=== PATIENT | female | born 1965 | race Hispanic/Latino ===

== ENCOUNTER 2017-12-16 17:02 | Inpatient (IN) | payer BC ==
[~2017-12-16 17:02] MED LIST: Calcium Chloride 1000 mg/10 ml Syringe IV ONE; Sodium Bicarbonate 7.5% (0.9 MEQ/ML) 50ML INJ IV ONE
[2017-12-16] MEDS ORDERED: Sodium Chloride 0.9% 50 ML IV ONE (17:32)
[2017-12-16] MEDS ORDERED: Iodixanol 320 MG/ML 100 ML BOTTLE IV ONE ×2 (17:32→21:22)
--- NOTE | 2017-12-16 17:49 | RAD ---
HISTORY: cardiac arrest COMPARISON: No prior. FINDINGS: LUNGS: No active pulmonary disease. PLEURA: No significant pleural effusion identified, no pneumothorax apparent. CARDIOVASCULAR: No radiographic findings to suggest acute or significant cardiovascular disease. OSSEOUS STRUCTURES: No significant abnormalities. VISUALIZED UPPER ABDOMEN: Normal. OTHER FINDINGS: Satisfactorily positioned endotracheal tube. Tube tip is approximately 3 cm above the trina IMPRESSION: No active disease. Satisfactory position of endotracheal tube.
--- NOTE | 2017-12-16 17:55 | CT ---
PROCEDURE: CT HEAD WITHOUT CONTRAST. HISTORY: cardiac arrest COMPARISON: None available. TECHNIQUE: Axial computed tomography images were obtained through the head/brain without intravenous contrast. Radiation dose: Total exam DLP = 1679.32 mGy-cm. This CT exam was performed using one or more of the following dose reduction techniques: Automated exposure control, adjustment of the mA and/or kV according to patient size, and/or use of iterative reconstruction technique. FINDINGS: HEMORRHAGE: No intracranial hemorrhage. BRAIN: While there is good corticomedullary differentiation appreciated throughout the brain, inferior bilateral basal ganglia lucencies may reflect chronic lacunar infarcts or dilated perivascular spaces. The remaining brain parenchyma is normal in density above and below the tentorium otherwise. There is no mass effect or suspicious extra-axial collection appreciated. VENTRICLES: Unremarkable. No hydrocephalus. CALVARIUM: Unremarkable. PARANASAL SINUSES: Unremarkable as visualized. No significant inflammatory changes. MASTOID AIR CELLS: Unremarkable as visualized. No inflammatory changes. OTHER FINDINGS: None. IMPRESSION: No definite acute intracranial findings as discussed above although chronic lacunes or dilated perivascular spaces are identified at the inferior bilateral basal ganglia. Follow-up CT or MRI can be performed as clinically warranted.
[2017-12-16 18:02] LABS: ABG ALLEN TEST YES; ARTERIAL BLOOD GAS HCO3 12.3 mmol/L (21-28); ARTERIAL BLOOD GAS O2 SAT 100.1 % (95-98); ARTERIAL BLOOD GAS PCO2 42 mm/Hg (35-45); ARTERIAL BLOOD GAS PH 7.07 (7.35-7.45); ARTERIAL BLOOD GAS PO2 498 mm/Hg (80-100); ARTERIAL BLOOD GAS TCO2 13.5 mmol/L (22-28)
--- NOTE | 2017-12-16 18:31 | CT ---
PROCEDURE: CT Chest with contrast (Pulmonary Angiogram) HISTORY: cardiac arrest COMPARISON: Chest radiograph 12/16/2017. TECHNIQUE: Axial computed tomography images were obtained of the chest in the pulmonary arterial phase of enhancement. Coronal and sagittal reformatted images were created and reviewed. Intravenous contrast dose: Visipaque 320, 90 cc (same injection utilized for abdomen pelvis CT) Radiation dose: Total exam DLP = 670.78 mGy-cm. This CT exam was performed using one or more of the following dose reduction techniques: Automated exposure control, adjustment of the mA and/or kV according to patient size, and/or use of iterative reconstruction technique. FINDINGS: PULMONARY ARTERIES: Unremarkable. No pulmonary embolism. AORTA: No acute findings. No thoracic aortic aneurysm. LUNGS: Endotracheal intubation is identified terminating at the trachea 1.4 cm above the trina. Central airways are otherwise clear. Trace bilateral basilar dependent atelectasis is appreciated as well as mild bilateral lower lobe infiltrates. Trace right perihilar infiltrate is seen at the right upper lobe spared. Trace involvement seen at the lingula superiorly. PLEURAL SPACES: Unremarkable. No effusion or pneuomothorax. HEART: Unremarkable. No cardiomegaly. Trace inferior pericardial effusion. LYMPH NODES: No lymphadenopathy. BONES, CHEST WALL: Unremarkable. No fracture or destructive lesion OTHER FINDINGS: Intra biliary duct or portal venous gas is noted in the left lobe liver. Please see separate CT exam evaluation 12/16/2017. Bilateral submuscular breast implantation identified IMPRESSION: 1. No CT evidence of pulmonary embolus. 2. Mild bilateral lower lobe infiltrates are appreciate which trace infiltrate identified at the right upper lobe and lingula superiorly. Bibasilar dependent atelectasis also identified. 3. Trace inferior pericardial effusion. 4. Trace portal venous gas or intrahepatic bile duct gas left lobe liver. Please see separate abdomen pelvis CT examination 12/16/2017.
[2017-12-16 18:54] LABS: INR 1.4 (0.9-1.2)
[2017-12-16 18:56] LABS: PARTIAL THROMBOPLASTIN TIME 106.2 Seconds (25.6-37.1)
[2017-12-16 18:58] LABS: ALBUMIN 1.4 g/dL (3.5-5.0); ALT/SGPT 94 U/L (9-52); AST/SGOT 166 U/L (14-36); BLOOD UREA NITROGEN 8 mg/dl (7-17); CALCIUM 6.6 mg/dL (8.4-10.2); GFR AFRICAN-AMERICAN > 60; GFR NON-AFRICAN AMERICAN > 60; LIPASE 264 U/L (23-300)
[2017-12-16] MEDS ORDERED: Sodium Chloride 0.9% 1,000 ML IV STA ×2 (19:05→19:42)
[2017-12-16] MEDS ORDERED: Lactated Ringer's 1,000 ML IV SCH (19:15)
[2017-12-16] MEDS ORDERED: Tranexamic Acid 1,000 MG in Sodium Chloride 0.9% 100 ML IVPB STA (19:16)
[2017-12-16 19:23] LABS: BASO % 1.5 % (0.0-2.0); EOS % 2.6 % (0.0-4.0); LYMPH # 0.4 K/uL (1.0-4.3); LYMPH % 56.8 % (20.0-40.0); MEAN CELL VOLUME 101.4 fl (81.0-99.0); MEAN CORPUSCULAR HEMOGLOBIN 32.7 pg (27.0-31.0); MEAN CORPUSCULAR HGB CONC 32.2 g/dL (33.0-37.0); MEAN PLATELET VOLUME 8.6 fl (7.2-11.7); MONO # 0.1 K/uL (0.0-0.8); MONO % 7.7 % (0.0-10.0); NEUT # 0.2 K/uL (1.8-7.0); NEUT % 31.4 % (50.0-75.0); NRBC % 2.6 % (0.0-0.0); RBC 1.2 Mil/uL (3.80-5.20); RED CELL DISTRIBUTION WIDTH 14.3 % (11.5-14.5)
--- NOTE | 2017-12-16 19:34 | CT ---
PROCEDURE: CT Abdomen and Pelvis with contrast HISTORY: abd pain COMPARISON: None. TECHNIQUE: Contrast dose: Visipaque 320, 90 cc Radiation dose: Total exam DLP = 670.78 mGy-cm. This CT exam was performed using one or more of the following dose reduction techniques: Automated exposure control, adjustment of the mA and/or kV according to patient size, and/or use of iterative reconstruction technique. FINDINGS: LOWER THORAX: See chest CT 12/16/2017 immediately preceding the current abdomen and pelvis CT. LIVER: Gas seen in the nondependent left lobe liver within what appear to be portal veins with differs diagnosis being intrahepatic bile ducts. The liver is poorly enhanced as well as the majority of the solid abdominal viscera sparing the bilateral kidneys. GALLBLADDER AND BILE DUCTS: Obscured by ascites/hemoperitoneum. PANCREAS: Unremarkable. No gross lesion or ductal dilatation. SPLEEN: Unremarkable. ADRENALS: Unremarkable. No mass. KIDNEYS AND URETERS: Unremarkable. No hydronephrosis. No solid mass. VASCULATURE: Please see perineum section below. BOWEL: The stomach is distended with gas. The bowel does not appear obstructed although there is moderate dilatation of small bowel with gas. Residual oral contrast is identified mildly at the ascending colon. No definite pneumatosis coli is appreciated throughout the majority of large bowel and none is clearly evident in the small-bowel. APPENDIX: Appendix is partially obscured by ascites but is likely intact without acute appendicitis. PERITONEUM: Variable density ascites is identified ranging from 5 Hounsfield units up to 49 Hounsfield units suspicious for hemoperitoneum intermixed with ascites. There is no definite free intraperitoneal gas identified however, mesenteric reaction is appreciated at the right oj abdomen and due to hemoperitoneum and lack of oral contrast, small large bowel are poorly although the duodenum is recently identifiable. There is what appears to be extravasation of iodinated contrast material into the right flank/right lower quadrant that is the same density as contrast in the abdominal aorta. The finding likely reflects active extravasation from a branch off the hepatic artery, possibly the distal right gastric artery or superior pancreaticoduodenal artery.. The etiology is unclear but this could be due to infectious or inflammatory causes resulting in bowel although no pneumatosis is seen in this specific right flank location. Fecal material is favored over pneumatosis at the rectum. No definite free intraperitoneal gas is identified. The abdominal aorta appears small which may be a function of diminished systolic pressure but patent and without aneurysm or extravasation directly. Hemorrhagic byproducts are felt to present in the dependent lower pelvis. LYMPH NODES: Unremarkable. No enlarged lymph nodes. BLADDER: Unremarkable. REPRODUCTIVE: Unremarkable. BONES: No acute fracture. OTHER FINDINGS: None. IMPRESSION: Moderate hemoperitoneum is identified with questioned active extravasation at the right flank, possibly from the right gastric artery or possible superior pancreatic though duodenal artery. No definite abscess is appreciated however there appears to be 9 mm aneurysm somewhat proximal to the level of the active extravasation and this could be a septic aneurysm. Trace portal venous gas at the left lobe liver is suspicious for ischemic bowel though no definitive pneumatosis is appreciable including at the right hemiabdomen. No free intraperitoneal gas is appreciated. Other lesser findings as discussed above. Findings discussed preliminarily with Dr. August with written down and read back verification 12/16/2017 6:50 p.m.. Follow-up discussion at 7:29 p.m..
[2017-12-16 19:38] LABS: HEMOGLOBIN 3.9 g/dL (12.0-16.0); WHITE BLOOD COUNT 0.7 K/uL (4.8-10.8)
[2017-12-16] MEDS ORDERED: Albumin Human 5% (12.5 gm/250 ml) IV ONE (19:41)
[2017-12-16] MEDS ORDERED: Vasopressin 20 Units/ml Inj ONE (20:14)
--- NOTE | 2017-12-16 20:49 | ED PDOC ---
HPI: Cardiac Arrest Time Seen by Provider: 12/16/17 17:27 Chief Complaint (Nursing): Cardiac Arrest Chief Complaint (Provider): cardiac arrest History Per: Other (friend) Reason For Code Blue: Full Arrest Circumstances: Other (arrived via hired vehicle) CPR Initiated Prior To MD Arrival?: No Down-Time Before ACLS: Mins (approx 15 per friend) Medications Given Prior To MD Arrival: Other (none) Additional Complaint(s): 52yo F arrived at front door of ED via car from airport where she just landed from [place] with a friend for visit to [facility]. Per friend had uneventful flight , transferred to car to [facility], while in traffic began to c/o abdominal pain, had some trouble breathing, then became suddenly unresponsive in traffic near [facility]. Dropped off at curb at ER entrance per friend about 15min from initial collapse, I met patient at curb and we initiated CPR immediately placed on stretcher. Brought to resusc room with active CPR, code blue initiated, Dr Daly intubated with 7.0 ETT w glidescope and ACLS protocol continued. Asystole on arrival, peripheral access obtained, IVF and epinephrine given. Dr Daly attended to patient for resuscitation while I obtained information from friend Lisseth in bereavement room- stated she was seen at [facility] in [place] 2 nights ago for abdominal pain and discharged home with tramadol and zofran after CT abd pelvis abd bloodwork were unremarkable. While resuscitation underway Dr Daly continued at bedside and I contacted [facility] , spoke with meteorologist in charge Koffi, told attending physician was unavailable. He reported under stat need for potentially life saving communication a normal CT, normal Hgb and unremarkable chemistry was discharged w tramadol and zofran. Was seen by 2 physicians there over a shift change per RN but no GI or surgery reported. per friend Christiano- on hormone replacement patch, w children, no history chronic alcoholism or known drug use, does take xanax occasionally, had recent cyst removed from shoulder, having familial stresses. - Initial Findings Mentation: Unresponsive Respirations: None (Assisted) Pulse: None Rhythm: Asystole Past Medical History Reviewed: Historical Data, Nursing Documentation, Vital Signs, Unable To Obtain - Medical History Other PMH: per friend- recent abd pain, on hormone replacement therapy - Surgical History Other surgeries: unknown on arrival - Family History Family History: States: Unknown Family Hx - Living Arrangements Living Arrangements: With Family (erie) - Social History Current smoker - smoking cessation education provided: No (per friend ) - Allergies Allergies/Adverse Reactions: Allergies Allergy/AdvReac Type Severity Reaction Status Date / Time Unobtainable Allergy Verified 12/16/17 17:13 Review of Systems Review Of Systems: ROS cannot be obtained secondary to pt's inabilty to answer questions. Physical Exam - Reviewed Nursing Documentation Reviewed: Yes Vital Signs Reviewed: Yes - Physical Exam Appears: Negative for: Well (unresponsive) Head Exam: Positive for: ATRAUMATIC, NORMAL INSPECTION Skin: Positive for: Mottled, Cyanosis Eye Exam: Positive for: Other (pupils 4mm fixed no aniscoria). Negative for: EOMI, PERRL, Periorbital swelling ENT: Positive for: Other (mucous membranes moist) Neck: Positive for: Trachea Midline Cardiovascular/Chest: Positive for: Other (no subcutaneous emphysema, chest symmetric rise w bag, no pulse on arrival) Respiratory: Positive for: Other (clear lungs w ambu bag) Pulses-Femoral (L): 0 Pulses-Femoral (R): 0 Pulses-Radial (L): 0 Pulses-Radial (R): 0 Gastrointestinal/Abdominal: Positive for: Other (soft on arrival no ecchymosis) . Negative for: Asicites Back: Positive for: Other (neg ecchymosis on arrival to flanks) Extremity: Positive for: Other (neg edema, cool). Negative for: Deformity, Swelling Neurologic/Psych: Positive for: Other (unresponsive, no gag) - Laboratory Results Result Diagrams: 12/16/17 18:24 12/16/17 18:25 - ECG ECG: Positive for: Interpreted By Me ECG Rhythm: Positive for: ST/T Changes Interpretation Of Abn EKG: rapid Afbib post arrest and ROSC - Radiology X-Ray: Interpreted by Me X-Ray Interpretation: No Acute Disease - Critical Care Total Time (In Min): 120 Comments: patient required immediate and sustained bedside attention Medical Decision Making Medical Decision Makinyo F in cardiac arrest off transcontinental flight on hormone replacement therapy in setting of recent intermittent abdominal pain with Concern for PE, ICH, FL, arrhythmia, abdominal catastrophe vs other. Abdomen nondistended and soft on arrival. Able to regain ROSC after epinephrine and stat CT head/chest r/o PE and abdomen/ pelv performed but not making purposeful movements. BP adequate off pressors and further diagnostics to be obtained. Initial concern for PE as cause of arrest given long plane ride, on hormone therapy and sudden collapse without evidence of vomiting or severe abd pain with negative abdominal workup in [place] <48hrs. EKG thereafter Afib w RVR, does not appear as STEMI. Post arrest ABG ++lactate, hyperoxia, vent settings adjusted. CT brain report reviewed- no ICH. Discussed w radiologist Dr Murphy- no PE on CTA chest. CT abd pelv w massive hemoperiteoneum concern for pancreatic aneurysmal rupture. Central access difficult to obtain, IO access to L humeral head and TLC cath to L groin placed under emergent conditions. Stat PRBC ONeg, tranexamic acid, albumin and further IVF ordered. Therapeutic hypothermia considered and will be initiated after diagnostic imaging if other interventional pathology not discovered. Platelets ordered, not available in-house need to be ordered. FFP ordered. Note timing of some orders is not consistent with actual interventions given persistent time needed at bedside and later computer orders entered. Accession No. : [id number] Patient Name / ID : LIZ Lyons / [id number] Exam Date : 12/16/2017 17:47:35 ( Approved ) Study Comment : Sex / Age : F / 52Y Creator : Lyle Baptiste MD Dictator : Lyle Baptiste MD Computer Networking Instructor : Pit Shovel Operator : Lyle Baptiste MD Approver2 : Report Date : 12/16/2017 19:32:51 My Comment : PROCEDURE: CT Abdomen and Pelvis with contrast HISTORY: abd pain COMPARISON: None. TECHNIQUE: Contrast dose: Visipaque 320, 90 cc Radiation dose: Total exam DLP = 670.78 mGy-cm. This CT exam was performed using one or more of the following dose reduction techniques: Automated exposure control, adjustment of the mA and/or kV according to patient size, and/or use of iterative reconstruction technique. FINDINGS: LOWER THORAX: See chest CT 12/16/2017 immediately preceding the current abdomen and pelvis CT. LIVER: Gas seen in the nondependent left lobe liver within what appear to be portal veins with differs diagnosis being intrahepatic bile ducts. The liver is poorly enhanced as well as the majority of the solid abdominal viscera sparing the bilateral kidneys. GALLBLADDER AND BILE DUCTS: Obscured by ascites/hemoperitoneum. PANCREAS: Unremarkable. No gross lesion or ductal dilatation. SPLEEN: Unremarkable. ADRENALS: Unremarkable. No mass. KIDNEYS AND URETERS: Unremarkable. No hydronephrosis. No solid mass. VASCULATURE: Please see perineum section below. BOWEL: The stomach is distended with gas. The bowel does not appear obstructed although there is moderate dilatation of small bowel with gas. Residual oral contrast is identified mildly at the ascending colon. No definite pneumatosis coli is appreciated throughout the majority of large bowel and none is clearly evident in the small-bowel. APPENDIX: Appendix is partially obscured by ascites but is likely intact without acute appendicitis. PERITONEUM: Variable density ascites is identified ranging from 5 Hounsfield units up to 49 Hounsfield units suspicious for hemoperitoneum intermixed with ascites. There is no definite free intraperitoneal gas identified however, mesenteric reaction is appreciated at the right oj abdomen and due to hemoperitoneum and lack of oral contrast, small large bowel are poorly although the duodenum is recently identifiable. There is what appears to be extravasation of iodinated contrast material into the right flank/right lower quadrant that is the same density as contrast in the abdominal aorta. The finding likely reflects active extravasation from a branch off the hepatic artery, possibly the distal right gastric artery or superior pancreaticoduodenal artery.. The etiology is unclear but this could be due to infectious or inflammatory causes resulting in bowel although no pneumatosis is seen in this specific right flank location. Fecal material is favored over pneumatosis at the rectum. No definite free intraperitoneal gas is identified. The abdominal aorta appears small which may be a function of diminished systolic pressure but patent and without aneurysm or extravasation directly. Hemorrhagic byproducts are felt to present in the dependent lower pelvis. LYMPH NODES: Unremarkable. No enlarged lymph nodes. BLADDER: Unremarkable. REPRODUCTIVE: Unremarkable. BONES: No acute fracture. OTHER FINDINGS: None. IMPRESSION: Moderate hemoperitoneum is identified with questioned active extravasation at the right flank, possibly from the right gastric artery or possible superior pancreatic though duodenal artery. No definite abscess is appreciated however there appears to be 9 mm aneurysm somewhat proximal to the level of the active extravasation and this could be a septic aneurysm. Trace portal venous gas at the left lobe liver is suspicious for ischemic bowel though no definitive pneumatosis is appreciable including at the right hemiabdomen. No free intraperitoneal gas is appreciated. Other lesser findings as discussed above. Findings discussed preliminarily with Dr. August with written down and read back verification 12/16/2017 6:50 p.m.. Follow-up discussion at 7:29 p.m.. Accession No. : [id number] Patient Name / ID : LIZ Lyons / [id number] Exam Date : 12/16/2017 17:47:35 ( Approved ) Study Comment : Sex / Age : F / 52Y Creator : Lyle Baptiste MD Dictator : Lyle Baptiste MD Computer Networking Instructor : Pit Shovel Operator : Lyle Baptiste MD Approver2 : Report Date : 12/16/2017 18:27:40 My Comment : PROCEDURE: CT Chest with contrast (Pulmonary Angiogram) HISTORY: cardiac arrest COMPARISON: Chest radiograph 12/16/2017. TECHNIQUE: Axial computed tomography images were obtained of the chest in the pulmonary arterial phase of enhancement. Coronal and sagittal reformatted images were created and reviewed. Intravenous contrast dose: Visipaque 320, 90 cc (same injection utilized for abdomen pelvis CT) Radiation dose: Total exam DLP = 670.78 mGy-cm. This CT exam was performed using one or more of the following dose reduction techniques: Automated exposure control, adjustment of the mA and/or kV according to patient size, and/or use of iterative reconstruction technique. FINDINGS: PULMONARY ARTERIES: Unremarkable. No pulmonary embolism. AORTA: No acute findings. No thoracic aortic aneurysm. LUNGS: Endotracheal intubation is identified terminating at the trachea 1.4 cm above the trina. Central airways are otherwise clear. Trace bilateral basilar dependent atelectasis is appreciated as well as mild bilateral lower lobe infiltrates. Trace right perihilar infiltrate is seen at the right upper lobe spared. Trace involvement seen at the lingula superiorly. PLEURAL SPACES: Unremarkable. No effusion or pneuomothorax. HEART: Unremarkable. No cardiomegaly. Trace inferior pericardial effusion. LYMPH NODES: No lymphadenopathy. BONES, CHEST WALL: Unremarkable. No fracture or destructive lesion OTHER FINDINGS: Intra biliary duct or portal venous gas is noted in the left lobe liver. Please see separate CT exam evaluation 12/16/2017. Bilateral submuscular breast implantation identified IMPRESSION: 1. No CT evidence of pulmonary embolus. 2. Mild bilateral lower lobe infiltrates are appreciate which trace infiltrate identified at the right upper lobe and lingula superiorly. Bibasilar dependent atelectasis also identified. 3. Trace inferior pericardial effusion. 4. Trace portal venous gas or intrahepatic bile duct gas left lobe liver. Please see separate abdomen pelvis CT examination 12/16/2017. Initial labs revealed profound pancytopenia Trendelenburg position maintained to optimize cerebral perfusion. Patient lost pulses additional time, responded to CPR and epi and further IVF. Stat page to interventional radiology and surgery. Dr Hopson neurological surgeon surgeon in ED, recommend attempt for salvage IR if unable, possible salvage OR for clamping but will need higher level of care. hence recommends transfer tertiary center if survives, initial call made to [facility] acute surgical service awaiting call back. D/w Dr Andre who reviewed CT and will attempt salvage intervention. RN tank builder supervisor and SANDER PORTABLE MACHINE nursing at bedside to help facilitate IR and OR teams stat. Calcium to be given in IR suite after further transfusion. I updated friend Hattie who called Galen and I updated Galen x2 over course of ED resuscitation. Explained life saving procedures performed and very critical status, he consented to whatever needed to be performed to save Pamela 's life and to inform Hattie of any issues also. He is traveling from [facility]. I explained concern for poor prognosis, and if survives, may have profound anoxic injury, although initial CT does not demonstrate edema, was performed very rapidly after initial arrest. Friend Christiano- [phone] Disposition - Clinical Impression Clinical Impression: Cardiac arrest, Hemoperitoneum - Patient ED Disposition Is Patient to be Admitted: Yes - Disposition Disposition Time: 19:00 (approximate time, active dynamic case involving mutliple clinicians and active resuscitation) Condition: CRITICAL Forms: [employer] (Macedonian)
[2017-12-16] MEDS ORDERED: Lidocaine 1% Inj (20ml) ONE (20:56)
[2017-12-16] MEDS ORDERED: metroNIDAZOLE 500mg/100ml NS 100 ML IVPB ONE (21:04)
[2017-12-16] MEDS ORDERED: Rocuronium 10 mg/ml (5 ml) ONE (21:16)
[2017-12-16] MEDS ORDERED: EPINEPHrine 1 mg/ml (1:1000) Inj ONE (21:44)
[2017-12-16] MEDS ORDERED: Iodixanol 320 mg/ml 50 ml Sol IV ONE (22:02)
[2017-12-16] MEDS ORDERED: Cellulose Hemostat 2X3 Sheet ONE (22:09)
--- NOTE | 2017-12-16 22:37 | PCM.IRPREO ---
Pre Procedure Note - History Proposed Procedure: Mesenteric angiogram, embolization of GDA Pre-Op Diagnosis: Cardiac arrest, Acute blood loss, intraperitoneal hemorrhage - Previous Medical/Surgical History Cardiac: Other (Pt intubated at time of presentation to IR. ) - Pre Procedure Were any radiologic studies performed in the last 12 months: Yes (CT abdomen showed active bleed or aneurysm? in mid abdomen. Bleed appears to be a branch of the GDA.) List of radiologic studies performed: CTA chest, CT abdomen/pelvis with IV contrast. Was medical management performed in the past 24 months: Yes List of medical management performed: CPR, blood transfusions. Clinical indication for the procedure: Acute blood loss, cardiac arrest Have risks and benefits been explained to the patient: No (Pt intubated and procedure is performed in an emergent, life saving manner. ER attending spoke w who asked everything be done.) Have alternatives to surgery explained to the patient as applicable: No ( Surgical options discussed wth Pt's friend. Pt is not responsive and family en route from [place].) - Allergies Allergies: Allergies Unobtainable Allergy (Verified 12/16/17 17:13) - Physical Exam Mental Status: Comatose - Impression Impression: Pt with acute blood loss secondary to either an ulcer or ruptured aneurysm. Active bleed seen on CT abdomen. Plan mesenteric angiogram and embolization of GDA which appears to supply the bleeding area/vessel. Pt. Evaluated Today:Candidate for Anesthesia & Procedure: ASA V malampati 3 - Date & Time Date: 12/16/17 Time: 09:30
[2017-12-16] MEDS ORDERED: Sodium Bicarbonate 7.5% (0.9 MEQ/ML) 50ML INJ IV ONE (22:44)
--- NOTE | 2017-12-16 22:45 | PCM.SURG1 ---
Surgeon's Initial Post Op Note - Surgeon's Notes Surgeon: Rafat Cox MD [employer] Mechanic: NONE Type of Anesthesia: Local, None Pre-Operative Diagnosis: Acute blood loss, cardiac arrest Operative Findings: Mesenteric angiogram showed active extravasation from a branch coming of the GDA. Vasospams. Post-Operative Diagnosis: Acute blood loss, cardiac arrest Operation Performed: Embolization of the GDA with interlock microcoils, 3 m-4 mm until stasis of blood flow in GDA was achieved. Specimen/Specimens Removed: NONE Estimated Blood Loss: EBL {In ML}: 15 Blood Products Given: N/A Drains Used: No Drains Post-Op Condition: Critical Date of Surgery/Procedure: 12/16/17 Time of Surgery/Procedure: 10:30
[2017-12-16] MEDS ORDERED: Sodium Bicarbonate 8.4% 100 MEQ in Dextrose 5%/0.45% NS 1,000 ML IV SCH (23:00)
[2017-12-16] MEDS ORDERED: Rocuronium 10 mg/ml (5 ml) IV ONE (23:04)
--- NOTE | 2017-12-16 23:21 | CP.PCM.HP ---
History of Present Illness - History of Present Illness History of Present Illness: PMD: Unknown Chief Complaint: Abdominal Pain/Cardiac Arrest The Patient was seen and examined in the ED/ In the IR Suit/ In the ICU HPI: All information obtained from patients friend, ER nurses and review of available EMR chart: 52 F arrived to ER via [employer] with friend, after departing from a flight from [place], had been conversing with friend in the [employer], then had c/o trouble breathing and abdominal pain, subsequently unresponsive, down time estd 5 mins , friend started prelim CPR in the [employer] which continued on the sidewalk after arrival to hospital. Code chelo called for asystole, successful resuscitation to ROSC and sinus rhythm with SBP 120s. Initial observed rhythms as per ER MD, described as brief rapid A Fib and bigeminy. Presently intubated on MV, minimal spontaneous hand withdrawal observed as per ER MD, underwent CT Head, CTAP and CT chest angio, all studies with prelim negative pathology. Friend states patient had been in an ER in [place] 2 days ago for abd pain with negative w/u and discharged home on Zofran and Tramadol. Friend states patient did take a Xanax and Tramadol during the flight. Patient taken to the IR lab where Mesenteric Angiogram and Embolization of GastroDuodenal Artery was done by Dr Andre. Other vitals and I/O's reviewed. ROS: no other pertinent negs or positives on 10+ system review obtainable from unresponsive and intubated patient PMSFH: All other Nursing and physician documentation reviewed to date; no new pertinent info noted relevant to current medical problems. Allergies: NKDA Home Meds: Unknown EXAM- HEENT: no icterus, no gaze preference, pupils equal and reactive NECK: No JVD, supple, carotids equal upstroke bilat/no bruits CHEST: clear with diminished BS bilat, no wheezes audible. HEART: regular, distant, S1S2, no rubs or murmurs ABD: soft, obese and rotund; no distention, no tympany, no palp tenderness, BS hypoactive EXT: no pedal edema. No peripheral/ digital cyanosis, no calf tenderness or palpable cords, distal pulses intact and symmetrical NEURO: flaccid x 4 extremities SKIN: no rashes, warm and dry. LABS: WBC= 0.7 HGB= 3.9 PLTs= 50 Xv=249 K= 3.3 CL= 98 HCO3=16 BUN/Cr= 8/0.8 BS= 402 CXR: (my interp) essentially clear bilaterally/ET tube above trina Head CT: No intracraneal bleed CT Chest: No PE Bibasal Atelectasis Trace inferior Pericardial effusion mild bilateral lower lobe infiltrate with trace infiltrate art right upper lobe CT Abdomen/Pevis: Moderate hemoperitoneum with questionable extravasation at right flank, Right gastric artery or possible superior pancrease through duodenal artery. 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 Cardiac Arrest 2. Acute Blood Loss 3. Intraperitoneal bleed 4. Pancytopenia 5. Hypocalcemia 6. Hypoalbuminemia PLAN: 1. Cardiac arrest with Respiratory Arrest with severe Metabolic Acidosis with pH 6.80 - Mechanical ventilation AC20; TV450; FiO2 100% - The Patient is paralized as per IR request - Sodium Bicarbonate . Total of 300mEq given - Sodium Bicarbonate Drip 2. Intraperitoneal Bleed with Acute blood loss Hb 3.9g/dl ;s/p Mesenteric Angiogram and Embolization of Gastro Duodenal Artery( Dr Rafat Andre) - Surgery on Consult : Dr Hopson - IR consult : Dr Rafat Andre - Patient received total of 8 units of PRBC; 3 Platelets and FFP - Will need further PRBC to be transfused - Tranexamic acid given Bolus and Drip - Consult Hematology: Dr Matthews - Plan by surgery to transfer patient to a trauma center 3. Hypovolemic shock - Monitor BP from A-Line - IV Fluids - Levophed/NeoSynephrine/Epinephrine/Vasopressin 4. Hypocalcemia secondary to the hypoalbumenemia - Patient received 5. Pancytopenia - Consult Dr Roxane Matthews - PRBC and Platelets transfused 6. Elevated Troponin - Consult Dr Eloy Matthews #. DVT prophylaxis with SCD #. Code Status: Unknown full code Present on Admission - Present on Admission Any Indicators Present on Admission: No History of DVT/PE: No History of Uncontrolled Diabetes: No Urinary Catheter: No Decubitus Ulcer Present: No Past Patient History - Past Social History Smoking Status: Never Smoked - PSYCHIATRIC Hx Substance Use: No Meds Allergies/Adverse Reactions: Allergies Allergy/AdvReac Type Severity Reaction Status Date / Time Unobtainable Allergy Verified 12/16/17 17:13 Results - Labs Result Diagrams: 12/16/17 23:35 12/16/17 23:35 Labs: Laboratory Results - last 24 hr 12/16/17 12/16/17 12/16/17 17:26 18:24 18:25 WBC 0.7 L* RBC 1.20 L Hgb 3.9 L* Hct 12.2 L MCV 101.4 H MCH 32.7 H MCHC 32.2 L RDW 14.3 Plt Count 50 L MPV 8.6 Neut % (Auto) 31.4 L Lymph % (Auto) 56.8 H Eagle % (Auto) 7.7 Eos % (Auto) 2.6 Baso % (Auto) 1.5 Neut # (Auto) 0.2 L Lymph # (Auto) 0.4 L Eagle # (Auto) 0.1 Eos # (Auto) 0.0 Baso # (Auto) 0.0 PT INR APTT pCO2 42 pO2 498 H HCO3 12.3 L ABG pH 7.07 L* ABG Total CO2 13.5 L ABG O2 Saturation 100.1 H ABG Base Excess -16.3 L Cristhian Test Yes ABG Potassium 3.1 L A-a O2 Difference 163.0 Sodium 135.0 131 L Chloride 104.0 98 Glucose 662 H* Lactate 13.2 H* Vent Mode Prvc/ac Mechanical Rate 14 FiO2 100.0 Tidal Volume 400 PEEP 4 Crit Value Called To Dr zeynep womack Crit Value Called By Rt Crit Value Read Back Y Blood Gas Notified Time 1726 Potassium 3.3 L Carbon Dioxide 16 L Anion Gap 20 BUN 8 Creatinine 0.8 Est GFR ( Amer) > 60 Est GFR (Non-Af Amer) > 60 Random Glucose 402 H* Calcium 6.6 L Phosphorus 7.9 H Magnesium 2.2 Total Bilirubin 0.3 AST 166 H ALT 94 H Alkaline Phosphatase 42 Troponin I 2.6700 H* Total Protein 2.8 L Albumin 1.4 L Globulin 1.4 L Albumin/Globulin Ratio 1.0 Lipase 264 Arterial Blood Potassium 3.1 L Blood Type Antibody Screen Crossmatch BBK History Checked 12/16/17 12/16/17 18:25 19:05 WBC RBC Hgb Hct MCV MCH MCHC RDW Plt Count MPV Neut % (Auto) Lymph % (Auto) Eagle % (Auto) Eos % (Auto) Baso % (Auto) Neut # (Auto) Lymph # (Auto) Eagle # (Auto) Eos # (Auto) Baso # (Auto) PT 16.0 H INR 1.4 H APTT 106.2 H* pCO2 pO2 HCO3 ABG pH ABG Total CO2 ABG O2 Saturation ABG Base Excess Cristhian Test ABG Potassium A-a O2 Difference Sodium Chloride Glucose Lactate Vent Mode Mechanical Rate FiO2 Tidal Volume PEEP Crit Value Called To Crit Value Called By Crit Value Read Back Blood Gas Notified Time Potassium Carbon Dioxide Anion Gap BUN Creatinine Est GFR ( Amer) Est GFR (Non-Af Amer) Random Glucose Calcium Phosphorus Magnesium Total Bilirubin AST ALT Alkaline Phosphatase Troponin I Total Protein Albumin Globulin Albumin/Globulin Ratio Lipase Arterial Blood Potassium Blood Type B NEGATIVE Antibody Screen Negative Crossmatch See Detail BBK History Checked No verified bt Assessment & Plan - Date & Time Date: 12/16/17 Time: 23:21
[2017-12-16] MEDS ORDERED: Norepinephrine 8 MG in Dextrose 5% In Water 500 ML IV SCH (23:30)
[2017-12-16 23:40] LABS: BASO % 0.7 % (0.0-2.0); EOS % 2.4 % (0.0-4.0); LYMPH # 0.4 K/uL (1.0-4.3); LYMPH % 25.2 % (20.0-40.0); MEAN CELL VOLUME 102.4 fl (81.0-99.0); MEAN CORPUSCULAR HEMOGLOBIN 31.2 pg (27.0-31.0); MEAN CORPUSCULAR HGB CONC 30.5 g/dL (33.0-37.0); MEAN PLATELET VOLUME 8.1 fl (7.2-11.7); MONO % 3.3 % (0.0-10.0); NEUT % 68.4 % (50.0-75.0); NRBC % 1.3 % (0.0-0.0); RBC 1.77 Mil/uL (3.80-5.20); RED CELL DISTRIBUTION WIDTH 16.2 % (11.5-14.5)
[2017-12-16 23:43] LABS: HEMOGLOBIN 5.5 g/dL (12.0-16.0); WHITE BLOOD COUNT 1.4 K/uL (4.8-10.8)
[2017-12-17 00:07] LABS: ALB/GLOB RATIO 1.1 (1.0-2.1); ALBUMIN 1.5 g/dL (3.5-5.0); ALT/SGPT 490 U/L (9-52); AST/SGOT 732 U/L (14-36); BLOOD UREA NITROGEN 7 mg/dl (7-17); CALCIUM 9.9 mg/dL (8.4-10.2); GFR AFRICAN-AMERICAN > 60; GFR NON-AFRICAN AMERICAN 58
[2017-12-17] MEDS: Phenylephrine 30 MG in Sodium Chloride 0.9% 250 ML IV SCH ×5 (00:11→13:17)
[2017-12-17 00:15] LABS: ABG ALLEN TEST YES; ARTERIAL BLOOD GAS HEMOGLOBIN 6.8 g/dL (11.7-17.4); ARTERIAL BLOOD GAS O2 CAPACITY 9.4 mL/dL (16-24); ARTERIAL BLOOD GAS O2 CONTENT 7.2 ML/dL (15-23); ARTERIAL BLOOD GAS O2 SAT 76.7 % (95-98); ARTERIAL BLOOD GAS PCO2 61 mm/Hg (35-45); ARTERIAL BLOOD GAS PH < 6.80 (7.35-7.45); ARTERIAL BLOOD GAS PO2 45 mm/Hg (80-100)
[2017-12-17 00:17] LABS: ABG ALLEN TEST YES; ARTERIAL BLOOD GAS HEMOGLOBIN 4.4 g/dL (11.7-17.4); ARTERIAL BLOOD GAS O2 CAPACITY 6.1 mL/dL (16-24); ARTERIAL BLOOD GAS O2 SAT 82.4 % (95-98); ARTERIAL BLOOD GAS PCO2 43 mm/Hg (35-45); ARTERIAL BLOOD GAS PH < 6.80 (7.35-7.45); ARTERIAL BLOOD GAS PO2 44 mm/Hg (80-100)
[2017-12-17] MEDS ORDERED: Sodium Bicarbonate 7.5% (0.9 MEQ/ML) 50ML INJ IV ONE ×3 (00:17→04:52)
[2017-12-17] MEDS: metroNIDAZOLE 500mg/100ml NS 100 ML IVPB SCH ×3 (01:41→16:33)
[2017-12-17 01:47] VITALS: RESP 20
[2017-12-17] MEDS: Sodium Bicarbonate 8.4% 100 MEQ in Dextrose 5%/0.45% NS 1,000 ML IV SCH ×2 (03:02→11:52)
[2017-12-17] MEDS: Piperacillin/Tazobact 3.375 GM in Sodium Chloride 0.9% 100 ML IVPB SCH ×3 (03:03→16:32)
[2017-12-17] MEDS ORDERED: Calcium Chloride 1000 mg/10 ml Syringe IV ONE (03:06)
--- NOTE | 2017-12-17 03:27 | CP.PCM.CON ---
<Albaro Higginbotham - Last Filed: 12/17/17 10:12> History of Present Illness - History of Present Illness History of Present Illness: General Surgery Consult Note: Dr. Hopson Reason for consult: hemoperitoneum 52F with unknown past medical history presented to [facility] in cardiac arrest. As per patient's friend, Christiano, 2 days prior patient had visited a [facility] with complaints of abdominal pain. There she was discharged home with tramadol and zofran after CT abd pelvis along with lab work prove to be unremarkable. Today, they were taking an uber ride to [facility] and while in traffic patient began complaining of abdominal pain. Patient's friend described patient had some difficulty breathing and suddenly became unresponsive. Patient was dropped off at the curb of [facility] ED, Christiano states she had initiated CPR in the uber. Total time elapsed from uber ride to ED was approximately 15 minutes. CPR was resumed in ED, cheri whitney was called, patient was intubated, and ACLS was carried out. Shonaemelia states patient is on hormone replacement patch. There is no known history of alcoholism or drug abuse. General Surgery was consulted after CT Abd/Pel w/ IV contrast demonstrated hemoperitoneum. At time of examination, patient was intubated and on 15 mcg of levophed. GCS 3T. Vitals at time of examination were BP~85/40, HR ~110, O2 Sat ~ 85 on PRVC at 60% PEEP 5. Hgb 3.9, Hct 12.2, ABG lactate 13.2, pH 7.07 . At this time OR staff was mobilized for possible acute surgical intervention. Interventional Radiology water purification chemist, Dr. Andre, also consulted. At which time the decision was made to transfer patient to IR suite for embolization of gastroduodenal artery. Upon transfer to IR suite, patient underwent CPR after developing PEA. S/p ROSC, patient underwent embolization of gastroduodenal artery with interlock microcoils, 3mm-4 mm until stasis of blood flow in GDA was achieved. Attempts were made to contact tertiary facilities for possible transfer, which were unsuccessful. Patient was then transferred to ICU where she remained on mechanical ventilation and continued pressor support. Review of Systems - Review of Systems Systems not reviewed;Unavailable: Intubated Past Patient History - Past Medical History & Family History Past Medical History?: Yes - Past Social History Smoking Status: Never Smoked - CARDIAC Hx Cardiac Disorders: No (unknown) - PULMONARY Hx Respiratory Disorders: No (unknown) - NEUROLOGICAL Hx Neurological Disorder: No (unknown) - HEENT Hx HEENT Problems: No (unknown) - RENAL Hx Chronic Kidney Disease: No (unknown) - ENDOCRINE/METABOLIC Hx Endocrine Disorders: No (unknown) - HEMATOLOGICAL/ONCOLOGICAL Hx Blood Disorders: No (unknown) - INTEGUMENTARY Hx Dermatological Problems: No (unknown) - MUSCULOSKELETAL/RHEUMATOLOGICAL Hx Musculoskeletal Disorders: No (unknown) Hx Falls: No (unknown) - GASTROINTESTINAL Hx Gastrointestinal Disorders: No (unknown) Other/Comment: abdominal pain - GENITOURINARY/GYNECOLOGICAL Hx Genitourinary Disorders: No (unknown) - PSYCHIATRIC Hx Substance Use: No - SURGICAL HISTORY Hx Surgeries: No (unknown) - ANESTHESIA Hx Anesthesia: No (unknown) Meds Allergies/Adverse Reactions: Allergies Allergy/AdvReac Type Severity Reaction Status Date / Time Unobtainable Allergy Verified 12/16/17 17:13 - Medications Medications: Current Medications Lactated Ringer's (Lactated Ringer's) 1,000 mls @ 1,000 mls/hr IV .Q1H ALON Sodium Bicarbonate 100 meq/ (Dextrose/Sodium Chloride) 1,100 mls @ 125 mls/hr IV .Q8H48M ALON Stop: 12/17/17 22:51 Last Admin: 12/16/17 23:26 Dose: 125 mls/hr Phenylephrine HCl 30 mg/ (Sodium Chloride) 253 mls @ 10.12 mls/hr IV .Q24H ALON ; 20 MCG/MIN PRN Reason: Protocol Stop: 12/17/17 22:54 Last Titration: 12/17/17 03:20 Dose: 170 mcg/min, 86.02 mls/hr Tranexamic Acid 1,000 mg/ (Sodium Chloride) 100 mls @ 12.5 mls/hr IVPB ONCE ONE Stop: 12/17/17 07:57 Piperacillin Sod/Tazobactam (Sod 3.375 gm/ Sodium Chloride) 100 mls @ 100 mls/ hr IVPB Q6 ALON PRN Reason: Protocol Last Admin: 12/17/17 03:03 Dose: 100 mls/hr Vancomycin HCl 1 gm/ Sodium (Chloride) 250 mls @ 166.667 mls/hr IVPB DAILY ALON PRN Reason: Protocol Last Admin: 12/17/17 01:40 Dose: 166.667 mls/hr Metronidazole (Flagyl 500mg/100ml Ns) 100 mls @ 100 mls/hr IVPB Q8 ALON PRN Reason: Protocol Last Admin: 12/17/17 01:41 Dose: 100 mls/hr Vasopressin 100 units/ Sodium (Chloride) 105 mls @ 1.89 mls/hr IV .Q24H ALON; 0.03 UNITS/MIN PRN Reason: Protocol Last Admin: 12/17/17 02:43 Dose: 0.03 units/min, 1.89 mls/hr Sodium Bicarbonate 100 meq/ (Dextrose/Sodium Chloride) 1,100 mls @ 150 mls/hr IV .Q7H20M ALON Stop: 12/18/17 02:45 Last Admin: 12/17/17 03:02 Dose: 150 mls/hr Norepinephrine Bitartrate 8 mg (/ Dextrose) 508 mls @ 114.3 mls/hr IV .Q4H27M ALON; 30 MCG/MIN PRN Reason: Protocol Physical Exam - Head Exam Head Exam: NORMOCEPHALIC - Eye Exam Eye Exam: absent: EOMI Pupil Exam: Fixed, Mydriatic - ENT Exam ENT Exam: Mucous Membranes Dry - Respiratory Exam Respiratory Exam: absent: Rales, Rhonchi, Wheezes Additional comments: intubated - Cardiovascular Exam Cardiovascular Exam: Tachycardia, +S1, +S2 - GI/Abdominal Exam GI & Abdominal Exam: Distended. absent: Guarding, Rigid Additional comments: abdominoplasty scars noted - Neurological Exam Additional comments: GCS 3T - Skin Skin Exam: Dry Results - Vital Signs Recent Vital Signs: Last Vital Signs Temp 86 F L 12/17/17 02:00 Pulse 95 H 12/17/17 02:00 Resp 20 12/17/17 02:00 BP 74/54 L 12/17/17 02:43 Pulse Ox 83 L 12/17/17 02:00 - Labs Result Diagrams: 12/17/17 09:14 12/17/17 05:36 Labs: Laboratory Results - last 24 hr 12/16/17 12/16/17 12/16/17 17:26 18:24 18:25 WBC 0.7 L* RBC 1.20 L Hgb 3.9 L* Hct 12.2 L MCV 101.4 H MCH 32.7 H MCHC 32.2 L RDW 14.3 Plt Count 50 L MPV 8.6 Neut % (Auto) 31.4 L Lymph % (Auto) 56.8 H [place] % (Auto) 7.7 Eos % (Auto) 2.6 Baso % (Auto) 1.5 Neut # (Auto) 0.2 L Lymph # (Auto) 0.4 L [place] # (Auto) 0.1 Eos # (Auto) 0.0 Baso # (Auto) 0.0 PT INR APTT pCO2 42 pO2 498 H HCO3 12.3 L ABG pH 7.07 L* ABG Total CO2 13.5 L ABG O2 Saturation 100.1 H ABG O2 Content ABG Base Excess -16.3 L ABG Hemoglobin ABG Carboxyhemoglobin POC ABG HHb (Measured) ABG Methemoglobin ABG O2 Capacity Cristhian Test Yes ABG Potassium 3.1 L A-a O2 Difference 163.0 Hgb O2 Saturation Sodium 135.0 131 L Chloride 104.0 98 Glucose 662 H* Lactate 13.2 H* Vent Mode Prvc/ac Mechanical Rate 14 FiO2 100.0 Tidal Volume 400 PEEP 4 Crit Value Called To Dr zeynep womack Crit Value Called By Rt Crit Value Read Back Y Blood Gas Notified Time 1726 Potassium 3.3 L Carbon Dioxide 16 L Anion Gap 20 BUN 8 Creatinine 0.8 Est GFR ( Amer) > 60 Est GFR (Non-Af Amer) > 60 Random Glucose 402 H* Calcium 6.6 L Phosphorus 7.9 H Magnesium 2.2 Total Bilirubin 0.3 AST 166 H ALT 94 H Alkaline Phosphatase 42 Troponin I 2.6700 H* Total Protein 2.8 L Albumin 1.4 L Globulin 1.4 L Albumin/Globulin Ratio 1.0 Lipase 264 Arterial Blood Potassium 3.1 L Blood Type Blood Type Confirm Antibody Screen Crossmatch BBK History Checked 12/16/17 12/16/17 12/16/17 18:25 19:05 22:00 WBC RBC Hgb Hct MCV MCH MCHC RDW Plt Count MPV Neut % (Auto) Lymph % (Auto) [place] % (Auto) Eos % (Auto) Baso % (Auto) Neut # (Auto) Lymph # (Auto) [place] # (Auto) Eos # (Auto) Baso # (Auto) PT 16.0 H INR 1.4 H APTT 106.2 H* pCO2 pO2 HCO3 ABG pH ABG Total CO2 ABG O2 Saturation ABG O2 Content ABG Base Excess ABG Hemoglobin ABG Carboxyhemoglobin POC ABG HHb (Measured) ABG Methemoglobin ABG O2 Capacity Cristhian Test ABG Potassium A-a O2 Difference Hgb O2 Saturation Sodium Chloride Glucose Lactate Vent Mode Mechanical Rate FiO2 Tidal Volume PEEP Crit Value Called To Crit Value Called By Crit Value Read Back Blood Gas Notified Time Potassium Carbon Dioxide Anion Gap BUN Creatinine Est GFR ( Amer) Est GFR (Non-Af Amer) Random Glucose Calcium Phosphorus Magnesium Total Bilirubin AST ALT Alkaline Phosphatase Troponin I Total Protein Albumin Globulin Albumin/Globulin Ratio Lipase Arterial Blood Potassium Blood Type B NEGATIVE Blood Type Confirm B NEGATIVE Antibody Screen Negative Crossmatch See Detail BBK History Checked No verified bt 12/16/17 12/16/17 12/16/17 22:40 23:35 23:35 WBC 1.4 L* D RBC 1.77 L Hgb 5.5 L* Hct 18.1 L MCV 102.4 H MCH 31.2 H MCHC 30.5 L RDW 16.2 H Plt Count 126 L D MPV 8.1 Neut % (Auto) 68.4 Lymph % (Auto) 25.2 [place] % (Auto) 3.3 Eos % (Auto) 2.4 Baso % (Auto) 0.7 Neut # (Auto) 1.0 L Lymph # (Auto) 0.4 L [place] # (Auto) 0.0 Eos # (Auto) 0.0 Baso # (Auto) 0.0 PT INR APTT pCO2 43 pO2 44 L* HCO3 ABG pH < 6.80 L* ABG Total CO2 ABG O2 Saturation 82.4 L ABG O2 Content 5.0 L ABG Base Excess ABG Hemoglobin 4.4 L ABG Carboxyhemoglobin 3.6 H POC ABG HHb (Measured) 17.0 H ABG Methemoglobin 0.0 ABG O2 Capacity 6.1 L Cristhian Test Yes ABG Potassium A-a O2 Difference 615.0 Hgb O2 Saturation 79.4 L Sodium 145 Chloride 109 H Glucose Lactate Vent Mode Prvc/ac Mechanical Rate 14 FiO2 100.0 Tidal Volume 400 PEEP 0 Crit Value Called To Dr rehana herrera Crit Value Called By Rt Crit Value Read Back Y Blood Gas Notified Time 2242 Potassium 6.0 H Carbon Dioxide 11 L* D Anion Gap 31 H BUN 7 Creatinine 1.0 Est GFR ( Amer) > 60 Est GFR (Non-Af Amer) 58 Random Glucose 153 H Calcium 9.9 Phosphorus 10.5 H Magnesium 2.5 H Total Bilirubin 0.4 AST 732 H D ALT 490 H D Alkaline Phosphatase 35 L Troponin I Total Protein 2.9 L Albumin 1.5 L Globulin 1.4 L Albumin/Globulin Ratio 1.1 Lipase Arterial Blood Potassium Blood Type Blood Type Confirm Antibody Screen Crossmatch BBK History Checked 12/17/17 00:11 WBC RBC Hgb Hct MCV MCH MCHC RDW Plt Count MPV Neut % (Auto) Lymph % (Auto) [place] % (Auto) Eos % (Auto) Baso % (Auto) Neut # (Auto) Lymph # (Auto) [place] # (Auto) Eos # (Auto) Baso # (Auto) PT INR APTT pCO2 61 H pO2 45 L HCO3 ABG pH < 6.80 L* ABG Total CO2 ABG O2 Saturation 76.7 L ABG O2 Content 7.2 L ABG Base Excess ABG Hemoglobin 6.8 L ABG Carboxyhemoglobin 2.0 H POC ABG HHb (Measured) 22.7 H ABG Methemoglobin 0.5 ABG O2 Capacity 9.4 L Cristhian Test Yes ABG Potassium A-a O2 Difference 592.0 Hgb O2 Saturation 74.9 L Sodium Chloride Glucose Lactate Vent Mode A/c Mechanical Rate 14 FiO2 100.0 Tidal Volume 400 PEEP Crit Value Called To Dr kevin herrera Crit Value Called By 6075 Crit Value Read Back Y Blood Gas Notified Time 15 Potassium Carbon Dioxide Anion Gap BUN Creatinine Est GFR ( Amer) Est GFR (Non-Af Amer) Random Glucose Calcium Phosphorus Magnesium Total Bilirubin AST ALT Alkaline Phosphatase Troponin I Total Protein Albumin Globulin Albumin/Globulin Ratio Lipase Arterial Blood Potassium Blood Type Blood Type Confirm Antibody Screen Crossmatch BBK History Checked Assessment & Plan - Assessment and Plan (Free Text) Assessment: 52F with hemoperitoneum due to gastroduodenal bleed likely 2/2 perforated posterior duodenal ulcer Plan: -NPO -NGT to low continuous wall suction -Broad spectrum antibiotics -Transfuse as needed -Strict I&O's -F/u ABG/CBC/CMP/Mg/Phos -F/u troponins -Titrate pressors to maintain MAP>65 -F/u CXR in AM - Prognosis dismal at this present time -High risk of mortality should surgical intervention be pursued -Monitor urinary bladder pressure. If pressure>20mmHg contact medical surgical tech -Medical management per ICU Team -F/u family meeting -Further recs per Dr. Mark Anthony Tirado PGY2 - Date & Time Date: 12/16/17 Time: 23:30 <Abraham Hopson - Last Filed: 12/18/17 14:38> Results - Vital Signs Recent Vital Signs: Last Vital Signs Temp 90 F L 12/17/17 06:56 Pulse 56 L 12/17/17 17:00 Resp 20 12/17/17 17:00 BP 30/27 L 12/17/17 17:00 Pulse Ox 99 12/17/17 10:00 - Labs Result Diagrams: 12/17/17 16:57 12/17/17 10:41 Labs: Laboratory Results - last 24 hr 12/16/17 12/17/17 12/17/17 19:05 10:41 15:42 WBC RBC Hgb Hct MCV MCH MCHC RDW Plt Count MPV Neut % (Auto) Lymph % (Auto) [place] % (Auto) Eos % (Auto) Baso % (Auto) Neut # (Auto) Lymph # (Auto) [place] # (Auto) Eos # (Auto) Baso # (Auto) Neutrophils % (Manual) 70 Band Neutrophils % 4 H Lymphocytes % (Manual) 14 L Monocytes % (Manual) 12 H Nucleated RBC % 3 H Platelet Estimate Decreased L Anisocytosis (manual) Slight Microcytosis (manual) Slight Ovalocytes Slight [place] Cells Moderate pCO2 38 pO2 47 L HCO3 8.3 L* ABG pH 6.97 L* ABG Total CO2 9.9 L ABG O2 Saturation 85.9 L ABG Base Excess -21.2 L Cristhian Test Yes ABG Potassium 6.0 H A-a O2 Difference 619.0 Sodium 153.0 H Chloride 105.0 Glucose 574 H* D Lactate > 20.0 H* Vent Mode A/c Mechanical Rate 20 FiO2 100.0 Tidal Volume 450 Blood Gas Comments Lac=20 Crit Value Called To vasu Zacarias Crit Value Called By Crit Value Read Back Y Blood Gas Notified Time 1558 Hemoglobin A1c Arterial Blood Potassium 6.0 H Blood Type B NEGATIVE Antibody Screen Negative Crossmatch See Detail BBK History Checked No verified bt 12/17/17 12/17/17 16:57 16:57 WBC 1.8 L* D RBC 2.82 L Hgb 8.5 L D Hct 29.2 L MCV 103.5 H D MCH 30.1 MCHC 29.1 L RDW 16.9 H Plt Count 40 L D MPV 8.1 Neut % (Auto) 70.5 Lymph % (Auto) 21.9 [place] % (Auto) 5.9 Eos % (Auto) 1.2 Baso % (Auto) 0.5 Neut # (Auto) 1.3 L Lymph # (Auto) 0.4 L [place] # (Auto) 0.1 Eos # (Auto) 0.0 Baso # (Auto) 0.0 Neutrophils % (Manual) Band Neutrophils % Lymphocytes % (Manual) Monocytes % (Manual) Nucleated RBC % Platelet Estimate Anisocytosis (manual) Microcytosis (manual) Ovalocytes [place] Cells pCO2 pO2 HCO3 ABG pH ABG Total CO2 ABG O2 Saturation ABG Base Excess Cristhian Test ABG Potassium A-a O2 Difference Sodium Chloride Glucose Lactate Vent Mode Mechanical Rate FiO2 Tidal Volume Blood Gas Comments Crit Value Called To Crit Value Called By Crit Value Read Back Blood Gas Notified Time Hemoglobin A1c 5.7 Arterial Blood Potassium Blood Type Antibody Screen Crossmatch BBK History Checked Assessment & Plan - Assessment and Plan (Free Text) Plan: I personally saw and examined the patient at bedside with the resident and agree with the above assessment and plan. This is an unfortunate 52-year-old female who is brought to the emergency room by an [employer] motor coach driver and a friend who was with her for sudden onset of acute abdominal pain and loss of consciousness and loss of respirations in cab right on the way to [place]. This event happened near the [facility] and it tokk approximately 15-20 minutes to get to [facility]. Her friend stated she tried to perform CPR en route to the hospital. Patient arrived to our facility in extremis and pulseless arrest. CPR was perforemd outside of our emergency department by the ED staff and they did manage to get ROSC. Initial labs done revealed a hemoglobin level of 3-5 on initial labs. Per ED team, after initial return of spontaneous circulation she was sent to the CAT scanner to rule out any acute events at that time potentially a cardiac event or a PE. CT of the head, chest, abdomen pelvis as well as was performed. CT abdomen and pelvis revealed a large amount of retro- hemoperitoneum with an active blush likely coming from a branch of the gastroduodenal artery or pancreaticoduodenal branch it was difficult to say. She continued to be in extremis and lost pulse again and was intubated and resucusciated back to ROSC by the ED team. Transfusion was begun with blood products as well as vasoactive agents. This is when I initially saw the patient and Her systolic blood pressure was 55 , max levofed. Blood transfusions were ongoing. I discussed the case with my senior colleauge and Metal Stamper Dr. Maynard. We both agreed that operative intervention had a high percentage of on table mortality. In addition, the interventional radiology team was already mobilized prior to me seeing the patient and almost at the hospital. We all decided it was best to try to control her retroperitoneal bleed with IR embolization. I had the OR team on standby and assisted in caring for the patient while she was in the interventional suite with the plan to take her to the operating room if Dr. Fortune were not able to successfully coil embolized this lesion. Dr. Fortune was able to insert left groin cordis for further access. At this time, is uncertain if this was a pulseless arrest or whether was just difficult to palpate a pulse but chest compressions and CPR were started. A doppler US was used to assess and successfullly find a carotid pulse, which was erratic. Dr. Fortune proceeded with Angiogrpahy and embolization and was successful in embolizing proximal branch of where this active extravasation was coming from. During the time she was in the interventional suite she had received approximately 5-6 units of FFP 3 additional units of packed RBCs and 2 of platelets this was in addition to the blood pressure received in the emergency department which included several units of packed red blood cells. Once this was done the patient was transferred to the ICU for resuscitation. The icu team continued blood product resuscitation and added vasoactive agent to maintain her MAP > 50. A bladder pressure transducer was set up for serial recordings and monitoring for abdominal compartment syndrome. She was coagulopathic, hypothermic, and acidotic with ABG blood revealing pH<6.8 and BE -15. Dr. Fortune and I updated the patient's friend, her was not able to be reached as he was getting on a flight to come here. Her current condition is grave. I tried to contact several tertiary and/or trauma centers in the area to see if transfer for higher level of care was possible and warranted. However, none felt she was stable for transfer. She will continue ICU monitoring and rescuscitation and warming.
[2017-12-17 03:58] LABS: BASO % 0.2 % (0.0-2.0); EOS % 2.2 % (0.0-4.0); HEMOGLOBIN 6.7 g/dL (12.0-16.0); LYMPH # 0.2 K/uL (1.0-4.3); LYMPH % 19.2 % (20.0-40.0); MEAN CELL VOLUME 94.7 fl (81.0-99.0); MEAN CORPUSCULAR HEMOGLOBIN 29.8 pg (27.0-31.0); MEAN CORPUSCULAR HGB CONC 31.5 g/dL (33.0-37.0); MEAN PLATELET VOLUME 7.5 fl (7.2-11.7); MONO % 2.1 % (0.0-10.0); NEUT # 0.8 K/uL (1.8-7.0); NEUT % 76.3 % (50.0-75.0); NRBC % 5.4 % (0.0-0.0); RBC 2.23 Mil/uL (3.80-5.20); RED CELL DISTRIBUTION WIDTH 15.8 % (11.5-14.5)
[2017-12-17 04:11] LABS: WHITE BLOOD COUNT 1.1 K/uL (4.8-10.8)
[2017-12-17 04:33] LABS: ABG ALLEN TEST YES; ARTERIAL BLOOD GAS HCO3 8.2 mmol/L (21-28); ARTERIAL BLOOD GAS HEMOGLOBIN 6.6 g/dL (11.7-17.4); ARTERIAL BLOOD GAS O2 CAPACITY 9.1 mL/dL (16-24); ARTERIAL BLOOD GAS O2 CONTENT 8.6 ML/dL (15-23); ARTERIAL BLOOD GAS PCO2 48 mm/Hg (35-45); ARTERIAL BLOOD GAS PH 6.91 (7.35-7.45); ARTERIAL BLOOD GAS PO2 64 mm/Hg (80-100); ARTERIAL BLOOD GAS TCO2 11.1 mmol/L (22-28)
[2017-12-17 04:46] VITALS: TEMP 90
[2017-12-17] MEDS ORDERED: Sodium Chloride 0.9% 1,000 ML IV SCH (05:00)
[2017-12-17] MEDS: Norepinephrine 8 MG in Dextrose 5% In Water 500 ML IV SCH ×3 (05:01→16:30)
[2017-12-17 06:36] LABS: ALBUMIN < 1.0 g/dL (3.5-5.0); ALT/SGPT 439 U/L (9-52); AST/SGOT 817 U/L (14-36); BLOOD UREA NITROGEN 5 mg/dl (7-17); CALCIUM 7.7 mg/dL (8.4-10.2); GFR AFRICAN-AMERICAN > 60; GFR NON-AFRICAN AMERICAN 58
--- NOTE | 2017-12-17 06:54 | CP.CCUPN ---
CCU Subjective - Physician Review Subjective (Free Text): All information obtained from patients friend, ER nurses and review of available EMR chart: 52 F arrived to ER via UBER with friend, after departing from a flight from [place], had been conversing with friend in the Uber, then had c/o trouble breathing and abdominal pain, subsequently unresponsive, down time estd 5 mins , friend started prelim CPR in the UBER which continued on the sidewalk after arrival to hospital. Sonia whitney called for asystole, successful resuscitation to ROSC and sinus rhythm with SBP 120s. Initial observed rhythms as per ER MD, described as brief rapid A Fib and bigeminy. Presently intubated on MV, minimal spontaneous hand withdrawal observed as per ER MD, underwent CT Head, CTAP and CT chest angio. CT AP showed evidence of hemoperitoneum with possible active bleeding and ischemic bowel. Friend states patient had been in an ER in [place] 2 days ago for abd pain with negative w/u and discharged home on Zofran and Tramadol. Friend states patient did take a Xanax and Tramadol during the flight. Underwent General Surgery eval and IR evals; had emergent mesenteric Angiography and subsequent embolization of GDA. Had 3rd Code Blue pre- procedure and was resuscitated again with ROSC. Presently on multiple vasopressors / drips: including Levophed at 30mcg, Vasopressin 0.03, Phenylephrine 180mcg, Tranxemic acid drip, and vecuronium at 1 mcg dose. Other vitals and I/O's reviewed. Severe oliguria, approx. 10 ml urine seen within Vazquez tubing only. Best SPo2 only 89-90% on 100% oxygen, BP via R femoral A Line= 64/44, HR 90 in sinus. ROS: no other pertinent negs or positives on + system review obtainable from unresponsive and intubated patient PMSFH: All other Nursing and physician documentation reviewed to date; no new pertinent info noted relevant to current medical problems. Allergies: NKDA Home Meds: Unknown EXAM- HEENT: no icterus, no gaze preference, pupils dilated 5mm, midline, no Dolls, nonreactive, absent corneals, absent gag, absent carinal reflex. NECK: No JVD, supple, carotids equal upstroke bilat/no bruits CHEST: clear with diminished BS bilat, no wheezes audible. HEART: regular, distant, S1S2, no rubs or murmurs ABD: soft, obese and rotund; +firm distention, no tympany, no palp tenderness, BS inaudible. EXT: no pedal edema. + mottling extending upward to mid-thighs bialteratlly; distal pulses non-palpable. NEURO: flaccid x 4 extremities, GCS= 3T SKIN: no rashes, warm and dry. LABS: (Admission) WBC= 0.7, now 1.1 HGB= 3.9, now 6.7 PLTs= 50K , now 73K INR normal, PTT = 106.2 Lactate= 13.2, now 17.8 7.07 / 42 / 498 on admission, now 6.91/48/64 Na= 131, now 146 K= 3.3, now 4.7 CL= 98, now 112 HCO3= 16, now 11 BUN/Cr= 8/0.8, now 5/ 0.1 BS= 402, now 333 Trop= 2.67, now 19.5 CXR: (my interp) essentially clear bilaterally- admission film. EKG: (my interp) Sinus 80/min, nonspecific ST-T changes inferiorly and anteroseptal leads. IMPRESSION / MAJOR PROBLEMS NOW: 1. Cardiac Arrest with Refractory Shock State, high Lactate levels, persistent and severe Metabolic Acidosis, and Hypothermia. Clinical exam consistent with brain now. No brainstem reflexes observed. 2. Hemoperitoneum with severe anemia, etiology unclear, ?? 2perforated bowel, ?? ongoing bleeding. 3. Anoxic Encephalopathy with Deep Coma PLAN: 1. Hemodynamic support ongoing. Has already recd multiple blood products including 10 units PRBCs, 6 units FFP, 3 units Plats. 2. Would discontinue Vecuronium. If neurostatus is unchanged after paralytic effects dissipate, would have discussion with family over present poor and dismal diagnosis. 3. MV support, off PEEP, PAPs elevated, but acceptable, already on 100% oxygen, serial ABGs. 4. All abnormal labs to be repeated again. 5. Could stop monitoring bladder pressures, abdominopelvic area is filled with blood and will pseudo-elevate pressure measurements. 6. Prognosis is extremely poor, and not a candidate now for any surgical procedure nor therapeutic hypothermia. Discussed with patients spouse and eldest daughter.
--- NOTE | 2017-12-17 08:47 | CP.PCM.PN ---
<Jessee Burns - Last Filed: 12/17/17 14:24> Subjective - Date & Time of Evaluation Date of Evaluation: 12/17/17 Time of Evaluation: 06:30 - Subjective Subjective: Surgery Progress note- Dr. Hopson Patient seen and examined at bedside. Received a total of 10uPRBC, 6FFP, 3PLT. Current pressors Norepi, Epi, Vasopressin, and Phenelephrine. PRVC 20 450 0 100. Pupils fixed and dilated, no gag reflex. NGT minimal output. No output from billings overnight. Objective - Vital Signs/Intake and Output Vital Signs (last 24 hours): Temp Pulse Resp BP Pulse Ox 90 F L 92 H 20 62/45 L 80 L 12/17/17 06:56 12/17/17 08:00 12/17/17 08:00 12/17/17 08:00 12/17/17 08:00 Intake and Output: 12/17/17 12/17/17 06:59 18:59 Intake Total 506 Balance 506 - Medications Medications: Current Medications Lactated Ringer's (Lactated Ringer's) 1,000 mls @ 1,000 mls/hr IV .Q1H ALON Sodium Bicarbonate 100 meq/ (Dextrose/Sodium Chloride) 1,100 mls @ 125 mls/hr IV .Q8H48M ALON Stop: 12/17/17 22:51 Last Admin: 12/16/17 23:26 Dose: 125 mls/hr Phenylephrine HCl 30 mg/ (Sodium Chloride) 253 mls @ 10.12 mls/hr IV .Q24H ALON ; 20 MCG/MIN PRN Reason: Protocol Stop: 12/17/17 22:54 Last Admin: 12/17/17 07:11 Dose: 180 mcg/min, 91.08 mls/hr Piperacillin Sod/Tazobactam (Sod 3.375 gm/ Sodium Chloride) 100 mls @ 100 mls/ hr IVPB Q6 ALON PRN Reason: Protocol Last Admin: 12/17/17 03:03 Dose: 100 mls/hr Vancomycin HCl 1 gm/ Sodium (Chloride) 250 mls @ 166.667 mls/hr IVPB DAILY ALON PRN Reason: Protocol Last Admin: 12/17/17 01:40 Dose: 166.667 mls/hr Metronidazole (Flagyl 500mg/100ml Ns) 100 mls @ 100 mls/hr IVPB Q8 ALON PRN Reason: Protocol Last Admin: 12/17/17 01:41 Dose: 100 mls/hr Vasopressin 100 units/ Sodium (Chloride) 105 mls @ 1.89 mls/hr IV .Q24H ALON; 0.03 UNITS/MIN PRN Reason: Protocol Last Admin: 12/17/17 02:43 Dose: 0.03 units/min, 1.89 mls/hr Sodium Bicarbonate 100 meq/ (Dextrose/Sodium Chloride) 1,100 mls @ 150 mls/hr IV .Q7H20M ALON Stop: 12/18/17 02:45 Last Admin: 12/17/17 03:02 Dose: 150 mls/hr Norepinephrine Bitartrate 8 mg (/ Dextrose) 508 mls @ 114.3 mls/hr IV .Q4H27M ALON; 30 MCG/MIN PRN Reason: Protocol Last Admin: 12/17/17 05:01 Dose: 30 mcg/min, 114.3 mls/hr Sodium Chloride (Sodium Chloride 0.9%) 1,000 mls @ 1,000 mls/hr IV .Q1H ALON Stop: 12/18/17 04:54 Last Admin: 12/17/17 04:00 Dose: 1,000 mls/hr - Labs Labs: 12/17/17 03:45 12/17/17 05:36 PT 16.0 Seconds (9.8-13.1) H 12/16/17 18:25 INR 1.4 (0.9-1.2) H 12/16/17 18:25 APTT 106.2 Seconds (25.6-37.1) H* 12/16/17 18:25 - Head Exam Additional comments: NGT in place occular swelling - Eye Exam Eye Exam: absent: EOMI Pupil Exam: absent: PERRL - ENT Exam ENT Exam: Mucous Membranes Dry - Respiratory Exam Additional comments: On ventilator. PRVC 20 450 0 100 - Cardiovascular Exam Cardiovascular Exam: REGULAR RHYTHM. absent: Bradycardia, Tachycardia - GI/Abdominal Exam GI & Abdominal Exam: Firm, Rigid - Extremities Exam Extremities Exam: Pedal Edema Additional comments: moltting of LE bilaterally - Neurological Exam Neurological Exam: absent: Alert, Awake - Skin Skin Exam: Intact Assessment and Plan - Assessment and Plan (Free Text) Assessment: 52F s/p cardiac arrest x3, suspected posterior duodenal perforation with bleeding from gastroduodenal artery s/p Angioembolization. On 4 pressors medications, intubated, mechanically ventilated. s/p transfusion 10PRBC 6FFP 3PLT Plan: discussed with family in detail that patient would not benefit from surgery. Out come of surgery will not change the prognosis of the patient. Family understood the risks and surgery. patient in critical condition status and outcome guarded decision to medically manage and no surgery at this time discussed case in detail with the family and Dr. Hopson surgical attending [facility] PGY1 <Abraham Hopson - Last Filed: 12/18/17 14:42> Objective - Vital Signs/Intake and Output Vital Signs (last 24 hours): Temp Pulse Resp BP Pulse Ox 90 F L 56 L 20 30/27 L 99 12/17/17 06:56 12/17/17 17:00 12/17/17 17:00 12/17/17 17:00 12/17/17 10:00 - Labs Labs: 12/17/17 16:57 12/17/17 10:41 PT 16.0 Seconds (9.8-13.1) H 12/16/17 18:25 INR 1.4 (0.9-1.2) H 12/16/17 18:25 APTT 106.2 Seconds (25.6-37.1) H* 12/16/17 18:25 Assessment and Plan - Assessment and Plan (Free Text) Plan: Discussed with resident staff and agree with above assessment and plan. Prognosis is grave.
--- NOTE | 2017-12-17 08:53 | CP.PCM.CON ---
History of Present Illness - History of Present Illness History of Present Illness: This is a 52 yrs old female who was travelling from [place] to [place] with her friend. 2 days prior to that she had some abdominal pain . She went to an ER in [place], where she had a CT scan of the abdomen which was normal as was the CBC. She was given some tramadol for pain and she left for her trip to [place]. During the flight she had some pain in her abdomen and by the time she came to [place] the pain was much worse. She was in a cab going toward [facility] when the cab was asked to go to the nearest hospital. She was dropped off at the ER where she was unresponsive. hypotensive, and had cardiac arrest.A code blue was called. Blood work was done which showed a Hgb of 3.9gms, Wbc 0.7, and platelet 50K. 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 She was transfused 10 units of PRBC, 6 units of FFP and 3 units of platelets. This morning her hgb was only 6.5 so another 2 units were transfused, post transfusion cbc is awaited. She is still unresponsive. She was on hormone replacement therapy and had a long plane ride and initially a PE was suspected The ct scan of the chest did not show any evidence of the same. Past Patient History - Past Medical History & Family History Past Medical History?: Yes - Past Social History Smoking Status: Never Smoked - CARDIAC Hx Cardiac Disorders: No (unknown) - PULMONARY Hx Respiratory Disorders: No (unknown) - NEUROLOGICAL Hx Neurological Disorder: No (unknown) - HEENT Hx HEENT Problems: No (unknown) - RENAL Hx Chronic Kidney Disease: No (unknown) - ENDOCRINE/METABOLIC Hx Endocrine Disorders: No (unknown) - HEMATOLOGICAL/ONCOLOGICAL Hx Blood Disorders: No (unknown) - INTEGUMENTARY Hx Dermatological Problems: No (unknown) - MUSCULOSKELETAL/RHEUMATOLOGICAL Hx Musculoskeletal Disorders: No (unknown) Hx Falls: No (unknown) - GASTROINTESTINAL Hx Gastrointestinal Disorders: No (unknown) Other/Comment: abdominal pain - GENITOURINARY/GYNECOLOGICAL Hx Genitourinary Disorders: No (unknown) - PSYCHIATRIC Hx Substance Use: No - SURGICAL HISTORY Hx Surgeries: No (unknown) - ANESTHESIA Hx Anesthesia: No (unknown) Meds Allergies/Adverse Reactions: Allergies Allergy/AdvReac Type Severity Reaction Status Date / Time Unobtainable Allergy Verified 12/16/17 17:13 - Medications Medications: Current Medications Lactated Ringer's (Lactated Ringer's) 1,000 mls @ 1,000 mls/hr IV .Q1H ALON Sodium Bicarbonate 100 meq/ (Dextrose/Sodium Chloride) 1,100 mls @ 125 mls/hr IV .Q8H48M ALON Stop: 12/17/17 22:51 Last Admin: 12/16/17 23:26 Dose: 125 mls/hr Phenylephrine HCl 30 mg/ (Sodium Chloride) 253 mls @ 10.12 mls/hr IV .Q24H ALON ; 20 MCG/MIN PRN Reason: Protocol Stop: 12/17/17 22:54 Last Admin: 12/17/17 07:11 Dose: 180 mcg/min, 91.08 mls/hr Piperacillin Sod/Tazobactam (Sod 3.375 gm/ Sodium Chloride) 100 mls @ 100 mls/ hr IVPB Q6 ALON PRN Reason: Protocol Last Admin: 12/17/17 03:03 Dose: 100 mls/hr Vancomycin HCl 1 gm/ Sodium (Chloride) 250 mls @ 166.667 mls/hr IVPB DAILY ALON PRN Reason: Protocol Last Admin: 12/17/17 01:40 Dose: 166.667 mls/hr Metronidazole (Flagyl 500mg/100ml Ns) 100 mls @ 100 mls/hr IVPB Q8 ALON PRN Reason: Protocol Last Admin: 12/17/17 01:41 Dose: 100 mls/hr Vasopressin 100 units/ Sodium (Chloride) 105 mls @ 1.89 mls/hr IV .Q24H ALON; 0.03 UNITS/MIN PRN Reason: Protocol Last Admin: 12/17/17 02:43 Dose: 0.03 units/min, 1.89 mls/hr Sodium Bicarbonate 100 meq/ (Dextrose/Sodium Chloride) 1,100 mls @ 150 mls/hr IV .Q7H20M ALON Stop: 12/18/17 02:45 Last Admin: 12/17/17 03:02 Dose: 150 mls/hr Norepinephrine Bitartrate 8 mg (/ Dextrose) 508 mls @ 114.3 mls/hr IV .Q4H27M ALON; 30 MCG/MIN PRN Reason: Protocol Last Admin: 12/17/17 05:01 Dose: 30 mcg/min, 114.3 mls/hr Sodium Chloride (Sodium Chloride 0.9%) 1,000 mls @ 1,000 mls/hr IV .Q1H ALON Stop: 12/18/17 04:54 Last Admin: 12/17/17 04:00 Dose: 1,000 mls/hr Physical Exam - Additional Findings Additional findings: Pt is totally obtunded,unresponsive,pupils are fixed and dilated neck; supple, no lymphadenopathy Chest; air entry poor, no rales but she does have bilateral rhonchi Heart; A fib on admission,now sinus rhythm Abd; Distended, no mass palpable. Results - Vital Signs Recent Vital Signs: Last Vital Signs Temp 90 F L 12/17/17 06:56 Pulse 92 H 12/17/17 08:00 Resp 20 12/17/17 08:00 BP 62/45 L 12/17/17 08:00 Pulse Ox 80 L 12/17/17 08:00 - Labs Result Diagrams: 12/17/17 03:45 12/17/17 05:36 Labs: Laboratory Results - last 24 hr 12/16/17 12/16/17 12/16/17 17:26 18:24 18:25 WBC 0.7 L* RBC 1.20 L Hgb 3.9 L* Hct 12.2 L MCV 101.4 H MCH 32.7 H MCHC 32.2 L RDW 14.3 Plt Count 50 L MPV 8.6 Neut % (Auto) 31.4 L Lymph % (Auto) 56.8 H [place] % (Auto) 7.7 Eos % (Auto) 2.6 Baso % (Auto) 1.5 Neut # (Auto) 0.2 L Lymph # (Auto) 0.4 L [place] # (Auto) 0.1 Eos # (Auto) 0.0 Baso # (Auto) 0.0 PT INR APTT pCO2 42 pO2 498 H HCO3 12.3 L ABG pH 7.07 L* ABG Total CO2 13.5 L ABG O2 Saturation 100.1 H ABG O2 Content ABG Base Excess -16.3 L ABG Hemoglobin ABG Carboxyhemoglobin POC ABG HHb (Measured) ABG Methemoglobin ABG O2 Capacity Cristhian Test Yes ABG Potassium 3.1 L A-a O2 Difference 163.0 Hgb O2 Saturation Sodium 135.0 131 L Chloride 104.0 98 Glucose 662 H* Lactate 13.2 H* Vent Mode Prvc/ac Mechanical Rate 14 FiO2 100.0 Tidal Volume 400 PEEP 4 Crit Value Called To Dr zeynep womack Crit Value Called By Rt Crit Value Read Back Y Blood Gas Notified Time 1726 Potassium 3.3 L Carbon Dioxide 16 L Anion Gap 20 BUN 8 Creatinine 0.8 Est GFR ( Amer) > 60 Est GFR (Non-Af Amer) > 60 POC Glucose (mg/dL) Random Glucose 402 H* Lactic Acid Calcium 6.6 L Phosphorus 7.9 H Magnesium 2.2 Total Bilirubin 0.3 AST 166 H ALT 94 H Alkaline Phosphatase 42 Troponin I 2.6700 H* Total Protein 2.8 L Albumin 1.4 L Globulin 1.4 L Albumin/Globulin Ratio 1.0 Lipase 264 Arterial Blood Potassium 3.1 L Blood Type Blood Type Confirm Antibody Screen Crossmatch BBK History Checked 12/16/17 12/16/17 12/16/17 18:25 19:05 22:00 WBC RBC Hgb Hct MCV MCH MCHC RDW Plt Count MPV Neut % (Auto) Lymph % (Auto) [place] % (Auto) Eos % (Auto) Baso % (Auto) Neut # (Auto) Lymph # (Auto) [place] # (Auto) Eos # (Auto) Baso # (Auto) PT 16.0 H INR 1.4 H APTT 106.2 H* pCO2 pO2 HCO3 ABG pH ABG Total CO2 ABG O2 Saturation ABG O2 Content ABG Base Excess ABG Hemoglobin ABG Carboxyhemoglobin POC ABG HHb (Measured) ABG Methemoglobin ABG O2 Capacity Cristhian Test ABG Potassium A-a O2 Difference Hgb O2 Saturation Sodium Chloride Glucose Lactate Vent Mode Mechanical Rate FiO2 Tidal Volume PEEP Crit Value Called To Crit Value Called By Crit Value Read Back Blood Gas Notified Time Potassium Carbon Dioxide Anion Gap BUN Creatinine Est GFR ( Amer) Est GFR (Non-Af Amer) POC Glucose (mg/dL) Random Glucose Lactic Acid Calcium Phosphorus Magnesium Total Bilirubin AST ALT Alkaline Phosphatase Troponin I Total Protein Albumin Globulin Albumin/Globulin Ratio Lipase Arterial Blood Potassium Blood Type B NEGATIVE Blood Type Confirm B NEGATIVE Antibody Screen Negative Crossmatch See Detail BBK History Checked No verified bt 12/16/17 12/16/17 12/16/17 22:40 23:35 23:35 WBC 1.4 L* D RBC 1.77 L Hgb 5.5 L* Hct 18.1 L MCV 102.4 H MCH 31.2 H MCHC 30.5 L RDW 16.2 H Plt Count 126 L D MPV 8.1 Neut % (Auto) 68.4 Lymph % (Auto) 25.2 [place] % (Auto) 3.3 Eos % (Auto) 2.4 Baso % (Auto) 0.7 Neut # (Auto) 1.0 L Lymph # (Auto) 0.4 L [place] # (Auto) 0.0 Eos # (Auto) 0.0 Baso # (Auto) 0.0 PT INR APTT pCO2 43 pO2 44 L* HCO3 ABG pH < 6.80 L* ABG Total CO2 ABG O2 Saturation 82.4 L ABG O2 Content 5.0 L ABG Base Excess ABG Hemoglobin 4.4 L ABG Carboxyhemoglobin 3.6 H POC ABG HHb (Measured) 17.0 H ABG Methemoglobin 0.0 ABG O2 Capacity 6.1 L Cristhian Test Yes ABG Potassium A-a O2 Difference 615.0 Hgb O2 Saturation 79.4 L Sodium 145 Chloride 109 H Glucose Lactate Vent Mode Prvc/ac Mechanical Rate 14 FiO2 100.0 Tidal Volume 400 PEEP 0 Crit Value Called To Dr rehana herrera Crit Value Called By Rt Crit Value Read Back Y Blood Gas Notified Time 2242 Potassium 6.0 H Carbon Dioxide 11 L* D Anion Gap 31 H BUN 7 Creatinine 1.0 Est GFR ( Amer) > 60 Est GFR (Non-Af Amer) 58 POC Glucose (mg/dL) Random Glucose 153 H Lactic Acid Calcium 9.9 Phosphorus 10.5 H Magnesium 2.5 H Total Bilirubin 0.4 AST 732 H D ALT 490 H D Alkaline Phosphatase 35 L Troponin I Total Protein 2.9 L Albumin 1.5 L Globulin 1.4 L Albumin/Globulin Ratio 1.1 Lipase Arterial Blood Potassium Blood Type Blood Type Confirm Antibody Screen Crossmatch BBK History Checked 12/17/17 12/17/17 12/17/17 00:11 03:45 03:46 WBC 1.1 L* RBC 2.23 L Hgb 6.7 L Hct 21.1 L MCV 94.7 D MCH 29.8 MCHC 31.5 L RDW 15.8 H Plt Count 73 L D MPV 7.5 Neut % (Auto) 76.3 H Lymph % (Auto) 19.2 L [place] % (Auto) 2.1 Eos % (Auto) 2.2 Baso % (Auto) 0.2 Neut # (Auto) 0.8 L Lymph # (Auto) 0.2 L [place] # (Auto) 0.0 Eos # (Auto) 0.0 Baso # (Auto) 0.0 PT INR APTT pCO2 61 H pO2 45 L HCO3 ABG pH < 6.80 L* ABG Total CO2 ABG O2 Saturation 76.7 L ABG O2 Content 7.2 L ABG Base Excess ABG Hemoglobin 6.8 L ABG Carboxyhemoglobin 2.0 H POC ABG HHb (Measured) 22.7 H ABG Methemoglobin 0.5 ABG O2 Capacity 9.4 L Cristhian Test Yes ABG Potassium A-a O2 Difference 592.0 Hgb O2 Saturation 74.9 L Sodium Chloride Glucose Lactate Vent Mode A/c Mechanical Rate 14 FiO2 100.0 Tidal Volume 400 PEEP Crit Value Called To Dr kevin herrera Crit Value Called By 6075 Crit Value Read Back Y Blood Gas Notified Time 15 Potassium Carbon Dioxide Anion Gap BUN Creatinine Est GFR ( Amer) Est GFR (Non-Af Amer) POC Glucose (mg/dL) 399 H Random Glucose Lactic Acid Calcium Phosphorus Magnesium Total Bilirubin AST ALT Alkaline Phosphatase Troponin I Total Protein Albumin Globulin Albumin/Globulin Ratio Lipase Arterial Blood Potassium Blood Type Blood Type Confirm Antibody Screen Crossmatch BBK History Checked 12/17/17 12/17/17 12/17/17 04:24 05:36 05:36 WBC RBC Hgb Hct MCV MCH MCHC RDW Plt Count MPV Neut % (Auto) Lymph % (Auto) [place] % (Auto) Eos % (Auto) Baso % (Auto) Neut # (Auto) Lymph # (Auto) [place] # (Auto) Eos # (Auto) Baso # (Auto) PT INR APTT pCO2 48 H pO2 64 L HCO3 8.2 L* ABG pH 6.91 L* ABG Total CO2 11.1 L ABG O2 Saturation 95.0 ABG O2 Content 8.6 L ABG Base Excess -21.4 L ABG Hemoglobin 6.6 L ABG Carboxyhemoglobin 3.1 H POC ABG HHb (Measured) 4.8 ABG Methemoglobin 0.2 ABG O2 Capacity 9.1 L Cristhian Test Yes ABG Potassium A-a O2 Difference 589.0 Hgb O2 Saturation 91.9 L Sodium 146 Chloride 112 H Glucose Lactate Vent Mode A/c Mechanical Rate 20 FiO2 100.0 Tidal Volume 450 PEEP Crit Value Called To Reba segura rn Crit Value Called By 6075 Crit Value Read Back Y Blood Gas Notified Time 433 Potassium 4.7 Carbon Dioxide 11 L* Anion Gap 28 H BUN 5 L Creatinine 1.0 Est GFR ( Amer) > 60 Est GFR (Non-Af Amer) 58 POC Glucose (mg/dL) Random Glucose 333 H Lactic Acid 17.8 H* Calcium 7.7 L Phosphorus 9.2 H Magnesium 1.9 Total Bilirubin 0.4 AST 817 H ALT 439 H Alkaline Phosphatase 31 L Troponin I 19.5000 H* Total Protein < 2.0 L Albumin < 1.0 L D Globulin TEST NOT PERFORMED Albumin/Globulin Ratio TEST NOT PERFORMED Lipase Arterial Blood Potassium Blood Type Blood Type Confirm Antibody Screen Crossmatch BBK History Checked Assessment & Plan - Assessment and Plan (Free Text) Assessment: impression; Septic shock,with hypotension, acute renal failure. ? ruptured aneurysm. Plan: Plan; Will ck the CBC done at (am to see if she needs any more blood.will follow. - Date & Time Date: 12/17/17 Time: 09:35
[2017-12-17 09:17] LABS: ABG ALLEN TEST YES; ARTERIAL BLOOD GAS HCO3 7.4 mmol/L (21-28); ARTERIAL BLOOD GAS O2 SAT 99.6 % (95-98); ARTERIAL BLOOD GAS PCO2 30 mm/Hg (35-45); ARTERIAL BLOOD GAS PH 7.03 (7.35-7.45); ARTERIAL BLOOD GAS PO2 65 mm/Hg (80-100); ARTERIAL BLOOD GAS TCO2 8.8 mmol/L (22-28)
[2017-12-17] MEDS ORDERED: Phenylephrine 10 mg/ml Inj ONE ×2 (09:19→13:06)
[2017-12-17 09:23] LABS: MEAN CELL VOLUME 91.9 fl (81.0-99.0); MEAN CORPUSCULAR HEMOGLOBIN 29.4 pg (27.0-31.0); MEAN CORPUSCULAR HGB CONC 31.9 g/dL (33.0-37.0); RBC 2.01 Mil/uL (3.80-5.20); RED CELL DISTRIBUTION WIDTH 18.1 % (11.5-14.5)
[2017-12-17 09:26] LABS: HEMOGLOBIN 5.9 g/dL (12.0-16.0); WHITE BLOOD COUNT 1.3 K/uL (4.8-10.8)
[2017-12-17] MEDS ORDERED: EPINEPHrine- 1 MG in Sodium Chloride 0.9% 250 ML IVPB ONE (10:05)
[2017-12-17 10:24] VITALS: O2SAT 99
--- NOTE | 2017-12-17 10:45 | CP.PCM.CON ---
History of Present Illness - History of Present Illness History of Present Illness: This is a 52 yrs old female who was travelling from [place] to [place] with her friend. 2 days prior to that she had some abdominal pain . She went to an ER in [place], where she had a CT scan of the abdomen which was normal as was the CBC. She was given some tramadol for pain and she left for her trip to [place]. During the flight she had some pain in her abdomen and by the time she came to [place] the pain was much worse. She was in a cab going toward [facility] when the cab was asked to go to the nearest [facility]. She was dropped off at the ER where she was unresponsive. hypotensive, and had cardiac arrest.A code blue was called. Blood work was done which showed a Hgb of 3.9gms, Wbc 0.7, and platelet 50K. 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 Pt is Intubated Vent and unresponsive Cardiology Consult called for elevated Troponin Past Patient History - Past Medical History & Family History Past Medical History?: Yes - Past Social History Smoking Status: Never Smoked - CARDIAC Hx Cardiac Disorders: No (unknown) - PULMONARY Hx Respiratory Disorders: No (unknown) - NEUROLOGICAL Hx Neurological Disorder: No (unknown) - HEENT Hx HEENT Problems: No (unknown) - RENAL Hx Chronic Kidney Disease: No (unknown) - ENDOCRINE/METABOLIC Hx Endocrine Disorders: No (unknown) - HEMATOLOGICAL/ONCOLOGICAL Hx Blood Disorders: No (unknown) - INTEGUMENTARY Hx Dermatological Problems: No (unknown) - MUSCULOSKELETAL/RHEUMATOLOGICAL Hx Musculoskeletal Disorders: No (unknown) Hx Falls: No (unknown) - GASTROINTESTINAL Hx Gastrointestinal Disorders: No (unknown) Other/Comment: abdominal pain - GENITOURINARY/GYNECOLOGICAL Hx Genitourinary Disorders: No (unknown) - PSYCHIATRIC Hx Substance Use: No - SURGICAL HISTORY Hx Surgeries: No (unknown) - ANESTHESIA Hx Anesthesia: No (unknown) Meds Allergies/Adverse Reactions: Allergies Allergy/AdvReac Type Severity Reaction Status Date / Time Unobtainable Allergy Verified 12/16/17 17:13 - Medications Medications: Current Medications Lactated Ringer's (Lactated Ringer's) 1,000 mls @ 1,000 mls/hr IV .Q1H ALON Sodium Bicarbonate 100 meq/ (Dextrose/Sodium Chloride) 1,100 mls @ 125 mls/hr IV .Q8H48M ALON Stop: 12/17/17 22:51 Last Admin: 12/16/17 23:26 Dose: 125 mls/hr Phenylephrine HCl 30 mg/ (Sodium Chloride) 253 mls @ 10.12 mls/hr IV .Q24H ALON ; 20 MCG/MIN PRN Reason: Protocol Stop: 12/17/17 22:54 Last Admin: 12/17/17 10:15 Dose: 180 mcg/min, 91.08 mls/hr Piperacillin Sod/Tazobactam (Sod 3.375 gm/ Sodium Chloride) 100 mls @ 100 mls/ hr IVPB Q6 ALON PRN Reason: Protocol Last Admin: 12/17/17 09:36 Dose: 100 mls/hr Vancomycin HCl 1 gm/ Sodium (Chloride) 250 mls @ 166.667 mls/hr IVPB DAILY ALON PRN Reason: Protocol Last Admin: 12/17/17 08:42 Dose: 166.667 mls/hr Metronidazole (Flagyl 500mg/100ml Ns) 100 mls @ 100 mls/hr IVPB Q8 ALON PRN Reason: Protocol Last Admin: 12/17/17 08:40 Dose: 100 mls/hr Vasopressin 100 units/ Sodium (Chloride) 105 mls @ 1.89 mls/hr IV .Q24H ALON; 0.03 UNITS/MIN PRN Reason: Protocol Last Admin: 12/17/17 02:43 Dose: 0.03 units/min, 1.89 mls/hr Sodium Bicarbonate 100 meq/ (Dextrose/Sodium Chloride) 1,100 mls @ 150 mls/hr IV .Q7H20M ALON Stop: 12/18/17 02:45 Last Admin: 12/17/17 03:02 Dose: 150 mls/hr Norepinephrine Bitartrate 8 mg (/ Dextrose) 508 mls @ 114.3 mls/hr IV .Q4H27M ALON; 30 MCG/MIN PRN Reason: Protocol Last Admin: 12/17/17 09:35 Dose: 30 mcg/min, 114.3 mls/hr Sodium Chloride (Sodium Chloride 0.9%) 1,000 mls @ 1,000 mls/hr IV .Q1H ALON Stop: 12/18/17 04:54 Last Admin: 12/17/17 04:00 Dose: 1,000 mls/hr Epinephrine HCl 1 mg/ Sodium (Chloride) 251 mls @ 15.06 mls/hr IVPB .[id number] ONE; 1 MCG/MIN PRN Reason: Protocol Stop: 12/18/17 02:44 Last Admin: 12/17/17 10:31 Dose: 15.06 mls/hr Physical Exam - Constitutional Additional comments: Intubated / unresponsive - Respiratory Exam Additional comments: Intubated on Vent - Cardiovascular Exam Cardiovascular Exam: REGULAR RHYTHM Results - Vital Signs Recent Vital Signs: Last Vital Signs Temp 90 F L 12/17/17 06:56 Pulse 77 12/17/17 10:31 Resp 20 12/17/17 10:00 BP 51/45 L 12/17/17 10:00 Pulse Ox 99 12/17/17 10:00 - Labs Result Diagrams: 12/17/17 09:14 12/17/17 05:36 Labs: Laboratory Results - last 24 hr 12/16/17 12/16/17 12/16/17 17:26 18:24 18:25 WBC 0.7 L* RBC 1.20 L Hgb 3.9 L* Hct 12.2 L MCV 101.4 H MCH 32.7 H MCHC 32.2 L RDW 14.3 Plt Count 50 L MPV 8.6 Neut % (Auto) 31.4 L Lymph % (Auto) 56.8 H [place] % (Auto) 7.7 Eos % (Auto) 2.6 Baso % (Auto) 1.5 Neut # (Auto) 0.2 L Lymph # (Auto) 0.4 L [place] # (Auto) 0.1 Eos # (Auto) 0.0 Baso # (Auto) 0.0 PT INR APTT pCO2 42 pO2 498 H HCO3 12.3 L ABG pH 7.07 L* ABG Total CO2 13.5 L ABG O2 Saturation 100.1 H ABG O2 Content ABG Base Excess -16.3 L ABG Hemoglobin ABG Carboxyhemoglobin POC ABG HHb (Measured) ABG Methemoglobin ABG O2 Capacity Cristhian Test Yes ABG Potassium 3.1 L A-a O2 Difference 163.0 Hgb O2 Saturation Sodium 135.0 131 L Chloride 104.0 98 Glucose 662 H* Lactate 13.2 H* Vent Mode Prvc/ac Mechanical Rate 14 FiO2 100.0 Tidal Volume 400 PEEP 4 Crit Value Called To Dr zeynep womack Crit Value Called By Rt Crit Value Read Back Y Blood Gas Notified Time 1726 Potassium 3.3 L Carbon Dioxide 16 L Anion Gap 20 BUN 8 Creatinine 0.8 Est GFR ( Amer) > 60 Est GFR (Non-Af Amer) > 60 POC Glucose (mg/dL) Random Glucose 402 H* Lactic Acid Calcium 6.6 L Phosphorus 7.9 H Magnesium 2.2 Total Bilirubin 0.3 AST 166 H ALT 94 H Alkaline Phosphatase 42 Troponin I 2.6700 H* Total Protein 2.8 L Albumin 1.4 L Globulin 1.4 L Albumin/Globulin Ratio 1.0 Lipase 264 Arterial Blood Potassium 3.1 L Blood Type Blood Type Confirm Antibody Screen Crossmatch BBK History Checked 12/16/17 12/16/17 12/16/17 18:25 19:05 22:00 WBC RBC Hgb Hct MCV MCH MCHC RDW Plt Count MPV Neut % (Auto) Lymph % (Auto) [place] % (Auto) Eos % (Auto) Baso % (Auto) Neut # (Auto) Lymph # (Auto) [place] # (Auto) Eos # (Auto) Baso # (Auto) PT 16.0 H INR 1.4 H APTT 106.2 H* pCO2 pO2 HCO3 ABG pH ABG Total CO2 ABG O2 Saturation ABG O2 Content ABG Base Excess ABG Hemoglobin ABG Carboxyhemoglobin POC ABG HHb (Measured) ABG Methemoglobin ABG O2 Capacity Cristhian Test ABG Potassium A-a O2 Difference Hgb O2 Saturation Sodium Chloride Glucose Lactate Vent Mode Mechanical Rate FiO2 Tidal Volume PEEP Crit Value Called To Crit Value Called By Crit Value Read Back Blood Gas Notified Time Potassium Carbon Dioxide Anion Gap BUN Creatinine Est GFR ( Amer) Est GFR (Non-Af Amer) POC Glucose (mg/dL) Random Glucose Lactic Acid Calcium Phosphorus Magnesium Total Bilirubin AST ALT Alkaline Phosphatase Troponin I Total Protein Albumin Globulin Albumin/Globulin Ratio Lipase Arterial Blood Potassium Blood Type B NEGATIVE Blood Type Confirm B NEGATIVE Antibody Screen Negative Crossmatch See Detail BBK History Checked No verified bt 12/16/17 12/16/17 12/16/17 22:40 23:35 23:35 WBC 1.4 L* D RBC 1.77 L Hgb 5.5 L* Hct 18.1 L MCV 102.4 H MCH 31.2 H MCHC 30.5 L RDW 16.2 H Plt Count 126 L D MPV 8.1 Neut % (Auto) 68.4 Lymph % (Auto) 25.2 [place] % (Auto) 3.3 Eos % (Auto) 2.4 Baso % (Auto) 0.7 Neut # (Auto) 1.0 L Lymph # (Auto) 0.4 L [place] # (Auto) 0.0 Eos # (Auto) 0.0 Baso # (Auto) 0.0 PT INR APTT pCO2 43 pO2 44 L* HCO3 ABG pH < 6.80 L* ABG Total CO2 ABG O2 Saturation 82.4 L ABG O2 Content 5.0 L ABG Base Excess ABG Hemoglobin 4.4 L ABG Carboxyhemoglobin 3.6 H POC ABG HHb (Measured) 17.0 H ABG Methemoglobin 0.0 ABG O2 Capacity 6.1 L Cristhian Test Yes ABG Potassium A-a O2 Difference 615.0 Hgb O2 Saturation 79.4 L Sodium 145 Chloride 109 H Glucose Lactate Vent Mode Prvc/ac Mechanical Rate 14 FiO2 100.0 Tidal Volume 400 PEEP 0 Crit Value Called To Dr rehana herrera Crit Value Called By Rt Crit Value Read Back Y Blood Gas Notified Time 2242 Potassium 6.0 H Carbon Dioxide 11 L* D Anion Gap 31 H BUN 7 Creatinine 1.0 Est GFR ( Amer) > 60 Est GFR (Non-Af Amer) 58 POC Glucose (mg/dL) Random Glucose 153 H Lactic Acid Calcium 9.9 Phosphorus 10.5 H Magnesium 2.5 H Total Bilirubin 0.4 AST 732 H D ALT 490 H D Alkaline Phosphatase 35 L Troponin I Total Protein 2.9 L Albumin 1.5 L Globulin 1.4 L Albumin/Globulin Ratio 1.1 Lipase Arterial Blood Potassium Blood Type Blood Type Confirm Antibody Screen Crossmatch BBK History Checked 12/17/17 12/17/17 12/17/17 00:11 03:45 03:46 WBC 1.1 L* RBC 2.23 L Hgb 6.7 L Hct 21.1 L MCV 94.7 D MCH 29.8 MCHC 31.5 L RDW 15.8 H Plt Count 73 L D MPV 7.5 Neut % (Auto) 76.3 H Lymph % (Auto) 19.2 L [place] % (Auto) 2.1 Eos % (Auto) 2.2 Baso % (Auto) 0.2 Neut # (Auto) 0.8 L Lymph # (Auto) 0.2 L [place] # (Auto) 0.0 Eos # (Auto) 0.0 Baso # (Auto) 0.0 PT INR APTT pCO2 61 H pO2 45 L HCO3 ABG pH < 6.80 L* ABG Total CO2 ABG O2 Saturation 76.7 L ABG O2 Content 7.2 L ABG Base Excess ABG Hemoglobin 6.8 L ABG Carboxyhemoglobin 2.0 H POC ABG HHb (Measured) 22.7 H ABG Methemoglobin 0.5 ABG O2 Capacity 9.4 L Cristhian Test Yes ABG Potassium A-a O2 Difference 592.0 Hgb O2 Saturation 74.9 L Sodium Chloride Glucose Lactate Vent Mode A/c Mechanical Rate 14 FiO2 100.0 Tidal Volume 400 PEEP Crit Value Called To Dr kevin herrera Crit Value Called By 6075 Crit Value Read Back Y Blood Gas Notified Time 15 Potassium Carbon Dioxide Anion Gap BUN Creatinine Est GFR ( Amer) Est GFR (Non-Af Amer) POC Glucose (mg/dL) 399 H Random Glucose Lactic Acid Calcium Phosphorus Magnesium Total Bilirubin AST ALT Alkaline Phosphatase Troponin I Total Protein Albumin Globulin Albumin/Globulin Ratio Lipase Arterial Blood Potassium Blood Type Blood Type Confirm Antibody Screen Crossmatch BBK History Checked 12/17/17 12/17/17 12/17/17 04:24 05:36 05:36 WBC RBC Hgb Hct MCV MCH MCHC RDW Plt Count MPV Neut % (Auto) Lymph % (Auto) [place] % (Auto) Eos % (Auto) Baso % (Auto) Neut # (Auto) Lymph # (Auto) [place] # (Auto) Eos # (Auto) Baso # (Auto) PT INR APTT pCO2 48 H pO2 64 L HCO3 8.2 L* ABG pH 6.91 L* ABG Total CO2 11.1 L ABG O2 Saturation 95.0 ABG O2 Content 8.6 L ABG Base Excess -21.4 L ABG Hemoglobin 6.6 L ABG Carboxyhemoglobin 3.1 H POC ABG HHb (Measured) 4.8 ABG Methemoglobin 0.2 ABG O2 Capacity 9.1 L Cristhian Test Yes ABG Potassium A-a O2 Difference 589.0 Hgb O2 Saturation 91.9 L Sodium 146 Chloride 112 H Glucose Lactate Vent Mode A/c Mechanical Rate 20 FiO2 100.0 Tidal Volume 450 PEEP Crit Value Called To Reba segura rn Crit Value Called By 6075 Crit Value Read Back Y Blood Gas Notified Time 433 Potassium 4.7 Carbon Dioxide 11 L* Anion Gap 28 H BUN 5 L Creatinine 1.0 Est GFR ( Amer) > 60 Est GFR (Non-Af Amer) 58 POC Glucose (mg/dL) Random Glucose 333 H Lactic Acid 17.8 H* Calcium 7.7 L Phosphorus 9.2 H Magnesium 1.9 Total Bilirubin 0.4 AST 817 H ALT 439 H Alkaline Phosphatase 31 L Troponin I 19.5000 H* Total Protein < 2.0 L Albumin < 1.0 L D Globulin TEST NOT PERFORMED Albumin/Globulin Ratio TEST NOT PERFORMED Lipase Arterial Blood Potassium Blood Type Blood Type Confirm Antibody Screen Crossmatch BBK History Checked 12/17/17 12/17/17 09:12 09:14 WBC 1.3 L* RBC 2.01 L Hgb 5.9 L* Hct 18.4 L MCV 91.9 D MCH 29.4 MCHC 31.9 L RDW 18.1 H Plt Count 119 L D MPV Neut % (Auto) Lymph % (Auto) [place] % (Auto) Eos % (Auto) Baso % (Auto) Neut # (Auto) Lymph # (Auto) [place] # (Auto) Eos # (Auto) Baso # (Auto) PT INR APTT pCO2 30 L pO2 65 L HCO3 7.4 L* ABG pH 7.03 L* ABG Total CO2 8.8 L ABG O2 Saturation 99.6 H ABG O2 Content ABG Base Excess -21.8 L ABG Hemoglobin ABG Carboxyhemoglobin POC ABG HHb (Measured) ABG Methemoglobin ABG O2 Capacity Cristhian Test Yes ABG Potassium 4.8 A-a O2 Difference 611.0 Hgb O2 Saturation Sodium 145.0 Chloride 107.0 Glucose 424 H* D Lactate > 20.0 H* Vent Mode Prvc ac Mechanical Rate 20 FiO2 100.0 Tidal Volume 450 PEEP Crit Value Called To Lorna marquez Crit Value Called By 292 Crit Value Read Back Y Blood Gas Notified Time 917 Potassium Carbon Dioxide Anion Gap BUN Creatinine Est GFR ( Amer) Est GFR (Non-Af Amer) POC Glucose (mg/dL) Random Glucose Lactic Acid Calcium Phosphorus Magnesium Total Bilirubin AST ALT Alkaline Phosphatase Troponin I Total Protein Albumin Globulin Albumin/Globulin Ratio Lipase Arterial Blood Potassium 4.8 Blood Type Blood Type Confirm Antibody Screen Crossmatch BBK History Checked Assessment & Plan (1) Ruptured aneurysm of artery Status: Acute (2) Cardiac arrest Assessment and Plan: Elevated Troponin secondary to Cardiac arrest and ruptured aneurysm Status: Acute (3) Hemoperitoneum Status: Acute
--- NOTE | 2017-12-17 11:08 | CARD ---
APPROVED REPORT EKG Measurement Heart [id number] <Conclusion> Normal sinus rhythm Nonspecific ST abnormality Abnormal ECG
[2017-12-17 11:11] LABS: BASO % 0.6 % (0.0-2.0); EOS # 0.1 K/uL (0.0-0.7); EOS % 2.4 % (0.0-4.0); LYMPH # 0.6 K/uL (1.0-4.3); LYMPH % 15.8 % (20.0-40.0); MEAN CORPUSCULAR HEMOGLOBIN 29.7 pg (27.0-31.0); MEAN CORPUSCULAR HGB CONC 31.3 g/dL (33.0-37.0); MONO # 0.3 K/uL (0.0-0.8); MONO % 7.5 % (0.0-10.0); NEUT # 2.8 K/uL (1.8-7.0); NEUT % 73.7 % (50.0-75.0); NRBC % 14.8 % (0.0-0.0); PLATELET COUNT 69 K/uL (130-400); RBC 1.94 Mil/uL (3.80-5.20); WHITE BLOOD COUNT 3.8 K/uL (4.8-10.8)
[2017-12-17 11:13] LABS: HEMOGLOBIN 5.8 g/dL (12.0-16.0)
[2017-12-17 11:24] LABS: ALB/GLOB RATIO 1.1 (1.0-2.1); ALBUMIN 1.2 g/dL (3.5-5.0); ALT/SGPT 408 U/L (9-52); AST/SGOT 718 U/L (14-36); BLOOD UREA NITROGEN 5 mg/dl (7-17); CALCIUM 6.3 mg/dL (8.4-10.2); GFR AFRICAN-AMERICAN > 60; GFR NON-AFRICAN AMERICAN 58
--- NOTE | 2017-12-17 12:00 | CP.PCM.PN ---
Subjective - Date & Time of Evaluation Date of Evaluation: 12/17/17 Time of Evaluation: 07:40 - Subjective Subjective: Pt seen and examined. History , labs. imaging reviewed. Events reviewed Pt Coded 3x She is intubated on Mech Vent at 100% FiO2 On 4 pressors- Vasopressin, Levophed, Phenyleprine,Epinephrine at max doses Received 10 units PRBC, 3 units Platelet and 6 units FFP also received Calcium, on Bicar drip and Tranexamic Acid Pt underwent Embolization of Gastroduodenal Artery done by IR last night Dr Allen, together with the Surgical spoke spoke with patient's and children - discussed Test results, CT findings, working diagnoses , treatment done and prognosis. Very poor prognosis - Pupils dilated , nonreactive to light, unresponsive to any stimuli, does not breath over Vent Anuric - less than 10 cc of urine in [place] Objective - Vital Signs/Intake and Output Vital Signs (last 24 hours): Temp Pulse Resp BP Pulse Ox 90 F L 76 20 59/45 L 99 12/17/17 06:56 12/17/17 11:00 12/17/17 11:00 12/17/17 11:00 12/17/17 10:00 Intake and Output: 12/17/17 12/17/17 06:59 18:59 Intake Total 506 761 Balance 506 761 - Medications Medications: Current Medications Lactated Ringer's (Lactated Ringer's) 1,000 mls @ 1,000 mls/hr IV .Q1H ALON Sodium Bicarbonate 100 meq/ (Dextrose/Sodium Chloride) 1,100 mls @ 125 mls/hr IV .Q8H48M ALON Stop: 12/17/17 22:51 Last Admin: 12/16/17 23:26 Dose: 125 mls/hr Phenylephrine HCl 30 mg/ (Sodium Chloride) 253 mls @ 10.12 mls/hr IV .Q24H ALON ; 20 MCG/MIN PRN Reason: Protocol Stop: 12/17/17 22:54 Last Admin: 12/17/17 10:15 Dose: 180 mcg/min, 91.08 mls/hr Piperacillin Sod/Tazobactam (Sod 3.375 gm/ Sodium Chloride) 100 mls @ 100 mls/ hr IVPB Q6 ALON PRN Reason: Protocol Last Admin: 12/17/17 09:36 Dose: 100 mls/hr Vancomycin HCl 1 gm/ Sodium (Chloride) 250 mls @ 166.667 mls/hr IVPB DAILY ALON PRN Reason: Protocol Last Admin: 12/17/17 08:42 Dose: 166.667 mls/hr Metronidazole (Flagyl 500mg/100ml Ns) 100 mls @ 100 mls/hr IVPB Q8 ALON PRN Reason: Protocol Last Admin: 12/17/17 08:40 Dose: 100 mls/hr Vasopressin 100 units/ Sodium (Chloride) 105 mls @ 1.89 mls/hr IV .Q24H ALON; 0.03 UNITS/MIN PRN Reason: Protocol Last Admin: 12/17/17 02:43 Dose: 0.03 units/min, 1.89 mls/hr Sodium Bicarbonate 100 meq/ (Dextrose/Sodium Chloride) 1,100 mls @ 150 mls/hr IV .Q7H20M ALON Stop: 12/18/17 02:45 Last Admin: 12/17/17 11:52 Dose: 150 mls/hr Norepinephrine Bitartrate 8 mg (/ Dextrose) 508 mls @ 114.3 mls/hr IV .Q4H27M ALON; 30 MCG/MIN PRN Reason: Protocol Last Admin: 12/17/17 09:35 Dose: 30 mcg/min, 114.3 mls/hr Sodium Chloride (Sodium Chloride 0.9%) 1,000 mls @ 1,000 mls/hr IV .Q1H ALON Stop: 12/18/17 04:54 Last Admin: 12/17/17 04:00 Dose: 1,000 mls/hr Epinephrine HCl 1 mg/ Sodium (Chloride) 251 mls @ 15.06 mls/hr IVPB .[id number] ONE; 1 MCG/MIN PRN Reason: Protocol Stop: 12/18/17 02:44 Last Admin: 12/17/17 10:31 Dose: 15.06 mls/hr Tranexamic Acid 1,000 mg/ (Sodium Chloride) 100 mls @ 10 mls/min IVPB STAT STA Stop: 12/17/17 12:07 Tranexamic Acid 1,000 mg/ (Sodium Chloride) 100 mls @ 12.5 mls/hr IVPB ONCE ONE Stop: 12/17/17 19:57 - Labs Labs: 12/17/17 10:41 12/17/17 10:41 PT 16.0 Seconds (9.8-13.1) H 12/16/17 18:25 INR 1.4 (0.9-1.2) H 12/16/17 18:25 APTT 106.2 Seconds (25.6-37.1) H* 12/16/17 18:25 - Constitutional Appears: Other (Comatose, INtubated on Mech Vent) - Head Exam Head Exam: NORMAL INSPECTION, NORMOCEPHALIC - Eye Exam Pupil Exam: Fixed Additional comments: Dilated pupils NRTL - ENT Exam ENT Exam: Mucous Membranes Dry, Normal External Ear Exam - Respiratory Exam Respiratory Exam: Rhonchi Additional comments: Intubated on Mech Vent - Cardiovascular Exam Cardiovascular Exam: REGULAR RHYTHM, +S1, +S2 - GI/Abdominal Exam GI & Abdominal Exam: Distended, Firm - Extremities Exam Additional comments: Livido reticularis Purplish , mottled discoloration of both LE up to the thigh - Neurological Exam Additional comments: Comatose, unresponsive even to deep pain - Skin Skin Exam: Mottled, Pallor Assessment and Plan (1) Cardiac arrest Status: Acute (2) Hemorrhagic shock Status: Acute (3) Hemoperitoneum Status: Acute (4) Gastroduodenal artery bleed Status: Acute (5) Lactic acidosis Status: Acute (6) Pancytopenia Status: Acute (7) Coagulopathy Status: Acute (8) Shock liver Status: Acute (9) Anuria Status: Acute - Assessment and Plan (Free Text) Assessment: 52 y/o lady, no significant PMH, was brought in by friend to the ED , just got off the plane flight from [facility] and in an Uber enroute to [facility] , when she was noted to be in respiratory distress then followed by unresponsiveness. She presented in the ED in Cardiac Arrest was resuscitated and again had another Code in the ED. She was Intubated and started on pressors. Labs showed severe Anemia with HGB=3.[address] of abd showing Hemoperitoneum. Surgery was consulted - OR mobilized. IR - Dr Andre also consulted. Pt again Coded for the 3rd time. Mesenteric Angiogram done showed Active bleeding of the Gastro-duodenal Artery - Embolization done by Dr Andre. Accdg to family , the patient had complained of Abd pain the day before and was seen at a [place] ED when all Labs and Ct of abdomen done were negative. She was d/c from the ED with Rx for pain. Pt is now in the ICU , prognosis very poor. Remains intubated , with 4 pressors. Received 10 units PRBC, 3 units Platelet and 6 units FFP. She is unresponsive , with fixed, dilated pupils. 1. Cardiac arrest Status: Acute Coded 3x on Pressoprs- Epinephrine, Norepinephrine, Phenylephrine and Vasopressin On Bicarb drip (2) Hemorrhagic shock Status: Acute cont Vent support Transfused with PRBC, FFP, Platelets received Calcium and Tranexamic acid cont pressors (3) Hemoperitoneum sec to Gastroduodenal artery bleed s/p Embolization of GDA by IR ? Bleed from perforated Duodenal Ulcer extending to GDA Transfuse as needed (4) Lactic acidosis sec to Hemorrhagic Shock Status: Acute severe lactic acidosis (5) Pancytopenia with Coagulopathy due to shock Transfuse as needed Hematology consult (6) Shock liver Status: Acute LFTs abn (7) Anuria, Renal Failure Status: Acute cont pressors 8. Troponin Elevation
--- NOTE | 2017-12-17 12:19 | RAD ---
HISTORY: s/p CPR COMPARISON: December 16, 2017. FINDINGS: LUNGS: Acute pulmonary edema identified. This represents a new finding compared to the prior study performed at 17:20 December 16, 2017. PLEURA: No significant pleural effusion identified, no pneumothorax apparent. CARDIOVASCULAR: Normal size heart. OSSEOUS STRUCTURES: No significant abnormalities. VISUALIZED UPPER ABDOMEN: Normal. OTHER FINDINGS: Satisfactory position of endotracheal tube and nasogastric tube IMPRESSION: Acute and presumed noncardiogenic pulmonary edema. Stable position of endotracheal tube in satisfactory position of recently placed nasogastric tube.
[2017-12-17 14:42] LABS: BANDS 4 % (0-2); LYMPHOCYTE 14 % (20-50); MONOCYTE 12 % (0-10); NEUTROPHIL 70 % (42-75); NUCLEATED RED BLOOD CELL 3 % (0-0); TOTAL CELLS COUNTED 25
[2017-12-17 14:43] LABS: PLATELET ESTIMATE DECREASED (NORMAL)
[2017-12-17 14:44] LABS: ANISOCYTOSIS SLIGHT; BURR CELLS MODERATE; MICROCYTOSIS SLIGHT; OVALOCYTES SLIGHT
--- NOTE | 2017-12-17 14:45 | CP.CCUPN ---
CCU Subjective - Physician Review Subjective (Free Text): CODE BLUE Note: 4th episode of resuscitation attempts for this patient. Code called for progressive deterioration in BP and HR, became bradycardic with HR in 40s manifest by wide complex QRS, then slowing and becoming asystolic. Loss of pulse waveform in the Arterial Line tracing noted. CPR / ACLS started immediately. High quality chest compressions ensured. Present vasoactive drips increased to free-flow rate and Atropine 0.5mg IVP given sequentially for a total of 3 doses and 2 doses of Epinephrine IVP. NaBicarb 2 amps given as well. No defibrillations were required nor given. After approx. 10 minutes of resuscitation time, carotid pulses returned and a satisfactory arterial wave form was noted. Patient remains in deep coma with no change in the absence of any brainstem reflexes. Patients two sons at the bedside and informed. Youngest son stated that he remembers a conversation from his Mother that if there was ever a situation like this, she would have wanted to live as long as possible.
--- NOTE | 2017-12-17 15:39 | CP.CCUPN ---
CCU Subjective - Physician Review Subjective (Free Text): CODE BLUE Note: 5th episode of resuscitation attempts for the patient. Code called again for priya-asystole rhythm and loss of pulses. CPR / ACLS started immediately. High quality chest compressions ensured. Supplemental meds given beyond present high rate infusion of Levophed, Phenylephrine, Bicarb drip, Epinephrine, and Vasopressin, included Atropine,. Epinephrine, and 100meg Sodium Bicarb IVP. After approx. 5 minutes of resuscitation time, carotid pulses returned and a satisfactory arterial wave form was noted. Patient remains in deep coma with no change in the absence of any brainstem reflexes. Family present and witnessed resuscitation attempts. No new Advance Directives given.
[2017-12-17] MEDS ORDERED: Sodium Bicarbonate 8.4% 150 MEQ in Dextrose 5% In Water 1,000 ML IV SCH (15:45)
[2017-12-17 15:59] LABS: ABG ALLEN TEST YES; ARTERIAL BLOOD GAS HCO3 8.3 mmol/L (21-28); ARTERIAL BLOOD GAS O2 SAT 85.9 % (95-98); ARTERIAL BLOOD GAS PCO2 38 mm/Hg (35-45); ARTERIAL BLOOD GAS PH 6.97 (7.35-7.45); ARTERIAL BLOOD GAS PO2 47 mm/Hg (80-100); ARTERIAL BLOOD GAS TCO2 9.9 mmol/L (22-28)
[2017-12-17 17:06] LABS: BASO % 0.5 % (0.0-2.0); EOS % 1.2 % (0.0-4.0); LYMPH # 0.4 K/uL (1.0-4.3); LYMPH % 21.9 % (20.0-40.0); MEAN CORPUSCULAR HEMOGLOBIN 30.1 pg (27.0-31.0); MEAN CORPUSCULAR HGB CONC 29.1 g/dL (33.0-37.0); MEAN PLATELET VOLUME 8.1 fl (7.2-11.7); MONO # 0.1 K/uL (0.0-0.8); MONO % 5.9 % (0.0-10.0); NEUT # 1.3 K/uL (1.8-7.0); NEUT % 70.5 % (50.0-75.0); RBC 2.82 Mil/uL (3.80-5.20); RED CELL DISTRIBUTION WIDTH 16.9 % (11.5-14.5)
[2017-12-17 17:13] VITALS: BP 30/27; PULSE 56
[2017-12-17 17:24] LABS: WHITE BLOOD COUNT 1.8 K/uL (4.8-10.8)
[2017-12-17 17:25] LABS: HEMOGLOBIN 8.5 g/dL (12.0-16.0)
[2017-12-17 17:26] LABS: MEAN CELL VOLUME 103.5 fl (81.0-99.0)
--- NOTE | 2017-12-17 18:13 | CP.PCM.PRO ---
Pronouncement of Note - Clinical Findings Physical Exam: No Response Verbal/Painful Stimuli, Absent Peripheral Pulses{ Carotid & Femoral}, Absent Heart & Breath Sounds, No Pupillary Light Reflex, No Corneal Reflex, Pupils Fixed & Dilated, Absence of Vital Signs - Pronouncement Time Time of Pronouncement of : 17:44 Additional Comments: Pt despite resuscitative measures - Notifications Pronouncement Notifications: Family Notified, Atending Notified Cryptographic Clerk Notified: No - Autopsy Autopsy Requested: No ( refused) - [place] [id number]
--- NOTE | 2017-12-17 18:29 | CP.CCUPN ---
CCU Subjective - Physician Review Subjective (Free Text): CODE BLUE Note: 6th episode of resuscitation for the patient: Code called again for progressive priya-asystole rhythm and loss of pulses. CPR / ACLS started immediately. High quality chest compressions ensured. Supplemental meds given again present high rates infusion of Levophed, Phenylephrine, Bicarb drip, Epinephrine, and Vasopressin, included Atropine, Epinephrine, and Sodium Bicarb IVP. After approx. 20 minutes of resuscitation time, patient remained unresponsive to resuscitation attempts; subsequently pronounced at 5:44PM. Eldest son present and 2 friends present outside of room during resuscitation attempts. After arrival of , informed of expiration, and refused my requests for an autopsy.
--- NOTE | 2017-12-17 18:36 | CP.PCM.DIS ---
Provider - Provider Date of Admission: 12/16/17 19:30 Attending physician: Tony Upton Consults: Surgery : Dr Hopson IR: Dr Andre Hematology: Dr Matthews Time Spent in preparation of Discharge (in minutes): 120 Diagnosis - Discharge Diagnosis (1) Cardiac arrest Status: Acute (2) Hemorrhagic shock Status: Acute (3) Hemoperitoneum Status: Acute (4) Gastroduodenal artery bleed Status: Acute (5) Lactic acidosis Status: Acute (6) Pancytopenia Status: Acute (7) Coagulopathy Status: Acute (8) Shock liver Status: Acute (9) Anuria Status: Acute (10) Acute myocardial infarction Status: Acute Hospital Course - Lab Results Lab Results: Most Recent Lab Values WBC 1.8 K/uL (4.8-10.8) L* D 12/17/17 16:57 RBC 2.82 Mil/uL (3.80-5.20) L 12/17/17 16:57 Hgb 8.5 g/dL (12.0-16.0) L D 12/17/17 16:57 Hct 29.2 % (34.0-47.0) L 12/17/17 16:57 MCV 103.5 fl (81.0-99.0) H D 12/17/17 16:57 MCH 30.1 pg (27.0-31.0) 12/17/17 16:57 MCHC 29.1 g/dL (33.0-37.0) L 12/17/17 16:57 RDW 16.9 % (11.5-14.5) H 12/17/17 16:57 Plt Count 40 K/uL (130-400) L D 12/17/17 16:57 MPV 8.1 fl (7.2-11.7) 12/17/17 16:57 Neut % (Auto) 70.5 % (50.0-75.0) 12/17/17 16:57 Lymph % (Auto) 21.9 % (20.0-40.0) 12/17/17 16:57 Piatt % (Auto) 5.9 % (0.0-10.0) 12/17/17 16:57 Eos % (Auto) 1.2 % (0.0-4.0) 12/17/17 16:57 Baso % (Auto) 0.5 % (0.0-2.0) 12/17/17 16:57 Neut # (Auto) 1.3 K/uL (1.8-7.0) L 12/17/17 16:57 Lymph # (Auto) 0.4 K/uL (1.0-4.3) L 12/17/17 16:57 Piatt # (Auto) 0.1 K/uL (0.0-0.8) 12/17/17 16:57 Eos # (Auto) 0.0 K/uL (0.0-0.7) 12/17/17 16:57 Baso # (Auto) 0.0 K/uL (0.0-0.2) 12/17/17 16:57 Neutrophils % (Manual) 70 % (42-75) 12/17/17 10:41 Band Neutrophils % 4 % (0-2) H 12/17/17 10:41 Lymphocytes % (Manual) 14 % (20-50) L 12/17/17 10:41 Monocytes % (Manual) 12 % (0-10) H 12/17/17 10:41 Nucleated RBC % 3 % (0-0) H 12/17/17 10:41 Platelet Estimate Decreased (NORMAL) L 12/17/17 10:41 Anisocytosis (manual) Slight 12/17/17 10:41 Microcytosis (manual) Slight 12/17/17 10:41 Ovalocytes Slight 12/17/17 10:41 Andreea Cells Moderate 12/17/17 10:41 PT 16.0 Seconds (9.8-13.1) H 12/16/17 18:25 INR 1.4 (0.9-1.2) H 12/16/17 18:25 APTT 106.2 Seconds (25.6-37.1) H* 12/16/17 18:25 pCO2 38 mm/Hg (35-45) 12/17/17 15:42 pO2 47 mm/Hg (80-100) L 12/17/17 15:42 HCO3 8.3 mmol/L (21-28) L* 12/17/17 15:42 ABG pH 6.97 (7.35-7.45) L* 12/17/17 15:42 ABG Total CO2 9.9 mmol/L (22-28) L 12/17/17 15:42 ABG O2 Saturation 85.9 % (95-98) L 12/17/17 15:42 ABG O2 Content 8.6 ML/dL (15-23) L 12/17/17 04:24 ABG Base Excess -21.2 mmol/L (-2.0-3.0) L 12/17/17 15:42 ABG Hemoglobin 6.6 g/dL (11.7-17.4) L 12/17/17 04:24 ABG Carboxyhemoglobin 3.1 % (0.5-1.5) H 12/17/17 04:24 POC ABG HHb (Measured) 4.8 % (0.0-5.0) 12/17/17 04:24 ABG Methemoglobin 0.2 % (0.0-3.0) 12/17/17 04:24 ABG O2 Capacity 9.1 mL/dL (16-24) L 12/17/17 04:24 Cristhian Test Yes 12/17/17 15:42 ABG Potassium 6.0 mmol/L (3.6-5.2) H 12/17/17 15:42 A-a O2 Difference 619.0 mm/Hg 12/17/17 15:42 Hgb O2 Saturation 91.9 % (95.0-98.0) L 12/17/17 04:24 Sodium 153.0 mmol/L (132-148) H 12/17/17 15:42 Chloride 105.0 mmol/L (98-107) 12/17/17 15:42 Glucose 574 mg/dL (65-105) H* D 12/17/17 15:42 Lactate > 20.0 mmol/L (0.7-2.1) H* 12/17/17 15:42 Vent Mode A/c 12/17/17 15:42 Mechanical Rate 20 12/17/17 15:42 FiO2 100.0 % 12/17/17 15:42 Tidal Volume 450 12/17/17 15:42 PEEP 0 12/16/17 22:40 Blood Gas Comments Lac=20 12/17/17 15:42 Crit Value Called To vasu Zacarias 12/17/17 15:42 Crit Value Called By 12/17/17 15:42 Crit Value Read Back Y 12/17/17 15:42 Blood Gas Notified Time 1558 12/17/17 15:42 Sodium 147 mmol/l (132-148) 12/17/17 10:41 Potassium 5.5 MMOL/L (3.6-5.0) H 12/17/17 10:41 Chloride 106 mmol/L (98-107) 12/17/17 10:41 Carbon Dioxide < 5 mmol/L (22-30) L* D 12/17/17 10:41 Anion Gap 42 (10-20) H 12/17/17 10:41 BUN 5 mg/dl (7-17) L 12/17/17 10:41 Creatinine 1.0 mg/dl (0.7-1.2) 12/17/17 10:41 Est GFR ( Amer) > 60 12/17/17 10:41 Est GFR (Non-Af Amer) 58 12/17/17 10:41 POC Glucose (mg/dL) 399 mg/dL (65-110) H 12/17/17 03:46 Random Glucose 323 mg/dL (65-105) H 12/17/17 10:41 Lactic Acid 17.8 MMOL/L (0.7-2.1) H* 12/17/17 05:36 Calcium 6.3 mg/dL (8.4-10.2) L 12/17/17 10:41 Phosphorus 9.2 mg/dl (2.5-4.5) H 12/17/17 05:36 Magnesium 1.9 MG/DL (1.6-2.3) 12/17/17 05:36 Total Bilirubin 0.5 mg/dl (0.2-1.3) 12/17/17 10:41 AST 718 U/L (14-36) H 12/17/17 10:41 ALT 408 U/L (9-52) H 12/17/17 10:41 Alkaline Phosphatase 75 U/L (38-126) 12/17/17 10:41 Troponin I 16.7000 ng/mL (0.00-0.120) H* 12/17/17 10:41 Total Protein 2.3 G/DL (6.3-8.2) L 12/17/17 10:41 Albumin 1.2 g/dL (3.5-5.0) L D 12/17/17 10:41 Globulin 1.1 gm/dL (2.2-3.9) L 12/17/17 10:41 Albumin/Globulin Ratio 1.1 (1.0-2.1) 12/17/17 10:41 Lipase 264 U/L (23-300) 12/16/17 18:25 Arterial Blood Potassium 6.0 mmol/L (3.6-5.2) H 12/17/17 15:42 Blood Type B NEGATIVE 12/16/17 19:05 Blood Type Confirm B NEGATIVE 12/16/17 22:00 Antibody Screen Negative 12/16/17 19:05 Crossmatch See Detail 12/16/17 19:05 BBK History Checked No verified bt 12/16/17 19:05 - Hospital Course Hospital Course: 52 y/o lady, no significant PMH, was brought in by friend to the ED unresponsive. She just got off a plane flight from [facility] and was in a car enroute to [facility] , when she was noted to be in respiratory distress then followed by unresponsiveness. She presented in the ED in Cardiac Arrest was resuscitated and again had another Code in the ED. She was Intubated and started on pressors. Labs showed severe Anemia with HGB=3.[address] of abd showing Hemoperitoneum. Surgery was consulted - OR mobilized. IR - Dr Andre also consulted. Pt again Coded for the 3rd time. Mesenteric Angiogram done showed Active bleeding of the Gastro-duodenal Artery - Embolization done by Dr Andre. Accdg to family , the patient had complained of Abd pain the day before and was seen at a [place] ED when all Labs and Ct of abdomen done were negative. She was d/c from the ED with Rx for pain. Pt was admitted in the ICU , had prognosis very poor. She was intubated and was on Mechanical Ventilation at 100% FiO2 and started on pressors. She was transfused 11 units PRBC, 3 units Platelet and 6 units FFP. She remained hypotensive despite transfusions and was placed on 4 pressors. Despite aggressive treatment and maximum doses of pressors, Bicarb drip , the patient continued to be hypotensive and went into Cardio-respiratory arrest 3 more times in the ICU. Despite resuscitative measures , the patient on 12/17/17 at 17:44 pm. 1. Cardiac arrest Status: Acute Coded 3x in ED and 3x in the ICU was on Pressors- Epinephrine, Norepinephrine, Phenylephrine and Vasopressin Bicarb drip despite resuscitative measures (2) Hemorrhagic shock Status: Acute Intubated and Vent support Transfused with PRBC, FFP, Platelets received Calcium , Bicarb and Tranexamic acid Pt was on 4 pressors (3) Hemoperitoneum sec to Gastroduodenal artery bleed s/p Embolization of GDA by IR ? Bleed from perforated Duodenal Ulcer extending to GDA Surgery consulted 4. Troponin Elevation prob Acute Myocardial Infarction sec to the severe anemia Cardio consulted (5) Lactic acidosis sec to Hemorrhagic Shock Status: Acute severe lactic acidosis (6) Pancytopenia with Coagulopathy due to shock transfused PRBC, FFP and platelet Hematology consulted (7) Shock liver Status: Acute LFTs abn (8) Anuria, Renal Failure Status: Acute cont pressors Discharge Exam - Head Exam Additional comments: Pt Discharge Plan - Follow Up Plan Condition:
== END 2017-12-17 20:05 | DRG 270 ==
LOC: H.EROB2 17:02 → H.ER 17:02 → H.ERHOLD 19:30 → H.ICU/CCU 22:48
PROVIDERS: ADMIT Internal Medicine; ATTEND Internal Medicine
PROC: 04V23DZ Restriction of Gastric Artery with Intraluminal Device, Percutaneous Approach (ICD-10-PCS; principal; 2017-12-16)
PROC: 5A1945Z Respiratory Ventilation, 24-96 Consecutive Hours (ICD-10-PCS; 2017-12-16)
PROC: 0BH17EZ Insertion of Endotracheal Airway into Trachea, Via Natural or Artificial Opening (ICD-10-PCS; 2017-12-16)
PROC: 30233K1 Transfusion of Nonautologous Frozen Plasma into Peripheral Vein, Percutaneous Approach (ICD-10-PCS; 2017-12-16)
PROC: 30233N1 Transfusion of Nonautologous Red Blood Cells into Peripheral Vein, Percutaneous Approach (ICD-10-PCS; 2017-12-16)
PROC: 4A133B1 Monitoring of Arterial Pressure, Peripheral, Percutaneous Approach (ICD-10-PCS; 2017-12-16)
PROC: 4A133J1 Monitoring of Arterial Pulse, Peripheral, Percutaneous Approach (ICD-10-PCS; 2017-12-16)
PROC: 6A550Z2 Pheresis of Platelets, Single (ICD-10-PCS; 2017-12-16)
PROC: 5A12012 Performance of Cardiac Output, Single, Manual (ICD-10-PCS; 2017-12-16)
DX: I72.8 Aneurysm of other specified arteries (principal); I21.9 Acute myocardial infarction, unspecified; K66.1 Hemoperitoneum; K72.00 Acute and subacute hepatic failure without coma; K26.6 Chronic or unspecified duodenal ulcer with both hemorrhage and perforation; D68.9 Coagulation defect, unspecified; D61.818 Other pancytopenia; E87.2 Acidosis; D62 Acute posthemorrhagic anemia; G93.1 Anoxic brain damage, not elsewhere classified; N17.8 Other acute kidney failure; I46.9 Cardiac arrest, cause unspecified; E83.51 Hypocalcemia; R57.1 Hypovolemic shock; I95.9 Hypotension, unspecified; Z79.890 Hormone replacement therapy